=== PATIENT | male | born 1950 | race Two or more races ===

== ENCOUNTER 2021-03-28 08:39 | Outpatient (REF) | payer MEDICARE, SELFPAY ==
--- NOTE | ~2021-03-28 | XR_ITS ---
EXAMINATION: XR LUMBOSACRAL SPINE WITH OBLIQUES CLINICAL INFORMATION: Low back pain COMPARISON: None TECHNIQUE: AP, both oblique, and lateral views of the lumbar spine. Lateral view of the lumbosacral junction. FINDINGS: Bone alignment is normal. No fracture or dislocation is seen. There is degenerative spondylosis at L2-L3 and L3-L4. There is lower lumbar spine facet arthritis. No pars defect is seen. Disc spaces are normal. XR/XR lumbar spine 4V min IMPRESSION: Degenerative changes.
== END 2021-03-28 08:40 | disposition home or self-care (01) ==
LOC: HO.XRAY 08:39
PROVIDERS: PCP Internal Medicine; Visit Provider Internal Medicine
DX: M54.5 Low back pain (principal)
CPT/HCPCS: 72110

== ENCOUNTER 2021-05-24 08:40 | Outpatient (REF) | payer MEDICARE, SELFPAY ==
[2021-05-24 09:59] LABS: PSA,Total (Free>4and<10) 5.17 ng/mL (0.00-4.00)
[2021-05-27 11:16] LABS: Free Prostate Spec Ag 0.4 ng/mL; Percent Free Prostate Spec Ag 9 % (calc) (>25); Prostate Specific Ag Total 4.6 ng/mL (< OR = 4.0)
== END 2021-05-24 08:41 | disposition home or self-care (01) ==
LOC: HO.LAB 08:40
PROVIDERS: PCP Internal Medicine; Visit Provider Urology
DX: Z12.5 Encounter for screening for malignant neoplasm of prostate (principal); R97.20 Elevated prostate specific antigen [PSA]
CPT/HCPCS: 36415; 84153; 84154

== ENCOUNTER → 2021-08-01 13:08 | Outpatient (BNVA) | payer MEDICARE, SELFPAY | PROVIDERS: PCP Internal Medicine; Visit Provider Urology | DX: N40.1 Benign prostatic hyperplasia with lower urinary tract symptoms (principal); N13.8 Other obstructive and reflux uropathy; R31.0 Gross hematuria | CPT/HCPCS: Q3014 ==

== ENCOUNTER 2022-01-28 08:19 | Outpatient (REF) | payer MEDICARE, SELFPAY ==
[2022-01-29 11:47] LABS: Free Prostate Spec Ag 1.4 ng/mL; Percent Free Prostate Spec Ag 28 % (calc) (>25)
== END 2022-01-28 08:20 | disposition home or self-care (01) ==
LOC: HO.LAB 08:19
PROVIDERS: PCP Internal Medicine; Visit Provider Urology
DX: Z12.5 Encounter for screening for malignant neoplasm of prostate (principal); N40.1 Benign prostatic hyperplasia with lower urinary tract symptoms; N13.8 Other obstructive and reflux uropathy
CPT/HCPCS: 36415; 84153; 84154

== ENCOUNTER → 2022-02-06 10:17 | Outpatient (BNVA) | payer OTHER, SELFPAY | PROVIDERS: PCP Internal Medicine; Visit Provider Urology | DX: N40.1 Benign prostatic hyperplasia with lower urinary tract symptoms (principal); N13.8 Other obstructive and reflux uropathy; R97.20 Elevated prostate specific antigen [PSA] | CPT/HCPCS: Q3014 ==

== ENCOUNTER 2022-07-30 08:10 | Outpatient (REF) | payer OTHER, SELFPAY ==
[2022-07-30 09:48] LABS: PSA,Total (Free>4and<10) 3.21 ng/mL (0.00-4.00)
== END 2022-07-30 08:11 | disposition home or self-care (01) ==
LOC: HO.LAB 08:10
PROVIDERS: PCP Internal Medicine; Visit Provider Urology
DX: Z12.5 Encounter for screening for malignant neoplasm of prostate (principal); N40.1 Benign prostatic hyperplasia with lower urinary tract symptoms; N13.8 Other obstructive and reflux uropathy
CPT/HCPCS: 36415; 84153

== ENCOUNTER → 2022-08-05 14:49 | Outpatient (BNVA) | payer OTHER, SELFPAY | PROVIDERS: PCP Internal Medicine; Visit Provider Urology | DX: R97.20 Elevated prostate specific antigen [PSA] (principal); N40.1 Benign prostatic hyperplasia with lower urinary tract symptoms; N13.8 Other obstructive and reflux uropathy | CPT/HCPCS: 51798; 99212 ==

== ENCOUNTER → 2022-08-27 13:06 | Outpatient (BNVA) | payer OTHER, SELFPAY | PROVIDERS: PCP Internal Medicine; Referring Provider Internal Medicine; Visit Provider Nurse Practitioner | DX: Z01.818 Encounter for other preprocedural examination (principal); D12.6 Benign neoplasm of colon, unspecified | CPT/HCPCS: 99202 ==

== ENCOUNTER 2023-01-29 08:22 | Outpatient (REF) | payer OTHER, SELFPAY ==
[2023-01-29 08:32] LABS: MANUAL DIFF FLAG NO
[2023-01-29 08:43] LABS: Basophils Percent Auto 0.3 % (0-2); Eosinophils Absolute Auto 0.1 X10*3/uL (0.0-0.4); Eosinophils Percent Auto 1.5 % (0-4); Hematocrit 48.1 % (42.0-52.0); Hemoglobin 15.7 g/dl (14.0-18.0); Imm Gran Abs Auto 0.01 X10*3/uL (0.00-0.03); Imm Gran Pct Auto 0.2 % (0.0-0.4); Lymphocytes Absolute Auto 2.3 X10*3/uL (1.2-4.9); Lymphocytes Percent Auto 37.8 % (20-40); Mean Corpuscular HGB Conc 32.6 g/dl (31.0-36.0); Mean Corpuscular Hemoglobin 28.4 pg (27.0-33.0); Mean Corpuscular Volume 87.1 fL (80.0-98.0); Mean Platelet Volume 9.5 fL (9.4-12.4); Monocytes Absolute Auto 0.4 X10*3/uL (0.1-1.2); Monocytes Percent Auto 6.7 % (2-11); Neutrophils Absolute Auto 3.3 x10*3/uL (2.0-8.3); Neutrophils Percent Auto 53.5 % (45-73); Platelet Count 199 X10*3/uL (160-400); Red Blood Count 5.52 X10*6/uL (4.60-5.80); Red Cell Distribution Width 13.6 % (11.0-16.0); White Blood Count 6.1 X10*3/uL (4.8-10.8)
[2023-01-29 09:19] LABS: Alanine Aminotransferase 27 U/L (0-40); Albumin Level 4.7 g/dL (3.5-5.0); Alkaline Phosphatase 97 U/L (39-117); Anion Gap 14 (12-20); Aspartate Amino Transferase 24 U/L (5-37); Bilirubin Total 1.4 mg/dL (0.0-1.0); Blood Urea Nitrogen 14 mg/dL (9-16); Calcium 9.5 mg/dL (8.4-10.2); Carbon Dioxide 27 mmol/L (22-29); Chloride 105 mmol/L (96-108); Estimated Glomerular Filt Rate > 60; Glucose Random 104 mg/dL (60-115); Potassium 4.4 mmol/L (3.3-5.1); Sodium 142 mmol/L (135-145); Total Protein 7.6 g/dL (6.5-8.0)
== END 2023-01-29 08:23 | disposition home or self-care (01) ==
LOC: HO.LAB 08:22
PROVIDERS: Nurse Practitioner; PCP Internal Medicine; Visit Provider Urology
DX: Z01.818 Encounter for other preprocedural examination (principal); Z12.5 Encounter for screening for malignant neoplasm of prostate; N13.8 Other obstructive and reflux uropathy; R97.20 Elevated prostate specific antigen [PSA]; D12.6 Benign neoplasm of colon, unspecified; N40.1 Benign prostatic hyperplasia with lower urinary tract symptoms
CPT/HCPCS: 36415; 80053; 84153; 85025

== ENCOUNTER → 2023-02-06 13:39 | Outpatient (BNVA) | payer OTHER, SELFPAY | PROVIDERS: PCP Internal Medicine; Visit Provider Urology | DX: R97.20 Elevated prostate specific antigen [PSA] (principal); R31.0 Gross hematuria | CPT/HCPCS: 51798; 99212 ==

== ENCOUNTER 2023-04-09 08:18 | Day surgery (SDC) | payer OTHER, SELFPAY ==
[2023-04-03 16:27] VITALS: BMI 24.9
--- NOTE | 2023-04-08 08:33 | HO.ANESPROP2 ---
Documented by User: Viktoriya Jennings NP 04/08/23 08:34 HPI - Anesthesia Eval Consult details Narrative: 72yo M for Colonoscopy PMF Active Problems Active Problems: All Active Problems (Updated 08/27/22 @ 13:16 by MATEUSZ Montemayor) Pre-op examination (Acute) Allergic rhinitis (Acute) Tubular adenoma of colon (Acute) Chronic low back pain (Acute) Elevated PSA (Acute) Gross hematuria (Acute) BPH w urinary obs/LUTS (Acute) Past Medical History Medical History Allergies BPH (benign prostatic hyperplasia) Constipation Elevated PSA Hematuria Hyperlipidemia Insomnia Surgical History Surgical History H/O colonoscopy H/O hernia repair History of surgery Hx of tonsillectomy Social History Social History Advance Directives: No Advance Directives Information Provided: Yes Meds Allergies Allergy/AdvReac Type Severity Reaction Status Date / Time ciprofloxacin [From CIPRO] Allergy Severe ANGIOEDEMA Verified 04/09/23 09:40 latex [LATEX] Allergy Unknown ANGIOEDEMA, Verified 04/09/23 09:40 PERIORBITAL EDEMA, rash Home Medications Medication Instructions Recorded Confirmed Last Taken Type acetaminophen 650 mg 650 mg PO BEDTIME 02/06/22 02/06/23 Unknown History tablet,extended release amlodipine 10 mg tablet 10 mg PO DAILY 02/06/22 02/06/23 Unknown History atenolol 100 mg tablet 100 mg PO DAILY 02/06/22 02/06/23 Unknown History atorvastatin 40 mg tablet 40 mg PO BEDTIME 02/06/22 02/06/23 Unknown History cetirizine 10 mg tablet 10 mg PO DAILY 02/06/22 02/06/23 Unknown History sennosides 8.6 mg tablet (senna) 17.2 mg PO DAILY 02/06/22 02/06/23 Unknown History fluticasone propionate 50 1 - 2 spray intranasal DAILY PRN 08/01/22 02/06/23 Unknown History mcg/actuation nasal spray,suspension Exam Exam Date and Time: April 08, 2023 0833 Height,Weight and Vital Signs: Height 5 ft 6 in Weight 70.08 kg Pertinent Lab Results Pertinent Lab Results: Laboratory Tests 01/29/23 01/29/23 08:31 08:31 WBC 6.1 Hgb 15.7 Hct 48.1 Plt Count 199 Sodium 142 Potassium 4.4 Chloride 105 Carbon Dioxide 27 BUN 14 Creatinine 1.17 Assessment and Plan Assessment Anesthesia Assessment: Chart Reviewed Documented by User: Blanche Lucas MD 04/09/23 09:40 PMF Past Medical History Medical History Allergies BPH (benign prostatic hyperplasia) Constipation Elevated PSA Hematuria Hyperlipidemia Insomnia Surgical History Surgical History H/O colonoscopy H/O hernia repair History of surgery Hx of tonsillectomy History of Problems with Anesthesia: No Social History Social History Advance Directives: No Advance Directives Information Provided: Yes Meds Allergies Allergy/AdvReac Type Severity Reaction Status Date / Time ciprofloxacin [From CIPRO] Allergy Severe ANGIOEDEMA Verified 04/09/23 09:40 latex [LATEX] Allergy Unknown ANGIOEDEMA, Verified 04/09/23 09:40 PERIORBITAL EDEMA, rash Home Medications Medication Instructions Recorded Confirmed Last Taken Type acetaminophen 650 mg 650 mg PO BEDTIME 02/06/22 02/06/23 Unknown History tablet,extended release amlodipine 10 mg tablet 10 mg PO DAILY 02/06/22 02/06/23 Unknown History atenolol 100 mg tablet 100 mg PO DAILY 02/06/22 02/06/23 Unknown History atorvastatin 40 mg tablet 40 mg PO BEDTIME 02/06/22 02/06/23 Unknown History cetirizine 10 mg tablet 10 mg PO DAILY 02/06/22 02/06/23 Unknown History sennosides 8.6 mg tablet (senna) 17.2 mg PO DAILY 02/06/22 02/06/23 Unknown History fluticasone propionate 50 1 - 2 spray intranasal DAILY PRN 08/01/22 02/06/23 Unknown History mcg/actuation nasal spray,suspension Exam Airway Mallampati Class: II TM Dist: >3cm Neck ROM: Full Loose/Missing/Broken Teeth: No Heart: RRR Lungs: CTA Assessment and Plan Assessment Anesthesia Assessment: Anesthesia Plan Discussed Final Anesthetic Review History of Problems with Anesthesia: No NPO: Yes ASA Class: II Final Preanesthetic Review: Meds/Allgs Chart Reviewed, Consent Obtained/Reviewed and Anes Risks/Benef Reviewed Patient Risk: Low Procedure Risk: Low Anesthetic Plan Anesthetic Plan: MAC: Disposition: Standard PACU
--- NOTE | 2023-04-09 09:19 | MHC.SHP ---
Pre-Procedural Eval Section A Date of Service: 04/09/23 Section B Chief Complaint: Benign neoplasm of colon, unspecified Relevant Family History (Specify if Yes): No Relevant Social History: None Present Medications: see Short Stay Collaborative assessment Medical History: Significant History (Allergies BPH (benign prostatic hyperplasia) Constipation Elevated PSA Hematuria Hyperlipidemia Insomnia) History of Previous Operations: Relevant previous surgery/procedure and date(s) (H/O colonoscopy H/O hernia repair History of surgery Hx of tonsillectomy) Allergies: Allergies Allergy/AdvReac Type Severity Reaction Status Date / Time ciprofloxacin [From CIPRO] Allergy Severe ANGIOEDEMA Verified 02/06/23 14:00 latex [LATEX] Allergy Unknown ANGIOEDEMA, Verified 04/03/23 16:26 PERIORBITAL EDEMA, rash Review of Systems Sugical H&P ROS: Negative: Constitution, Cardiovascular, Respiratory, Neurological, Psychiatric, Hem-Onc, Allergic/Immunologic, Gastrointestinal, Genitourinary, Musculoskeletal, Integumentary, Endocrine and Eyes/Ears/Nose/Throat Exam Surgical H&P Exam: Normal: HEENT, Normal: Heart, Normal: Lungs, Normal: Extremities, Normal: Abdomen, Normal: Skin and Normal: Neurological Plan Diagnosis/Plan: Unchanged I have reviewed the history and physical and performed a pertinent physical examination on my patient. No changes have occurred unless specified. Time Spent With Patient Time: Total time managing care of this patient today ____ minutes.
[2023-04-09 09:35] VITALS: BP 137/55; PULSE 75; RESP 16; TEMP 36.7; O2SAT 98
[2023-04-09 09:43] VITALS: BMI 25.5
[2023-04-09] MEDS: Lactated Ringers 1,000 ML 100 ML IVCONT (09:54)
--- NOTE | 2023-04-09 10:10 | P.OP_ITS ---
Operative Note Operative Note Date of Service: 04/09/23 Narrative: Operative Information Procedure Description: Colonoscopy Indication: hx of colon polyps Anesthesia: MAC COLONOSCOPY Instrument: Olympus variable stiffness pediatric scope 190L Colonoscopy Monitoring: Vital signs and clinical assessment, continuous EKG monitoring, Pulse oximetry, Carbon Dioxide monitoring and blood pressure monitoring were done throughout the procedure. Colon withdrawal time was 9 minutes. Procedure: The patient was placed in the left lateral decubitis position and pre-procedure medications were administered. After a digital rectal examination of the ano-rectum, the video colonoscope was inserted into the rectum and advanced through the colon to the cecum/TI. The colonoscope was slowly withdrawn in a retrograde panoramic fashion and the colon mucosa was carefully examined including a retroflexed view of the rectum. Findings and interventions are described below. Procedure Difficulty: easy Findings: Diffuse melanosis coli Terminal Ileum-normal Cecum:normal Ascending Colon: few diverticula seen Transverse Colon -normal Descending Colon: x 1 sessile polyp 7-8 mm removed with cold snare Sigmoid Colon: mild scattered diverticulosis, x1 sessile polyp 6-8 mm removed with cold snare Rectum: Retroflexion with medium sized internal hemorrhoids, grade I Anorectum - normal Colon preparation: [place] Bowel Preparation Scale Right colon; 2 Transverse colon: 3 Left colon; 3 (0 = Unprepared colon segment with mucosa not seen due to solid stool that cannot be cleared. 1 = Portion of mucosa of the colon segment seen, but other areas of the colon segment not well seen due to staining, residual stool and/or opaque liquid. 2 = Minor amount of residual staining, small fragments of stool and/or opaque liquid, but mucosa of colon segment seen well. 3 = Entire mucosa of colon segment seen well with no residual staining, small fragments of stool or opaque liquid) Impression and Post Procedure Diagnosis: polyps internal hemorrhoids diverticular disease melanosis coli Plan: High fiber diet leaflet Avoid straining at stool, epsom salts and sitz bath, anusol supps or cream Repeat Colonoscopy in 5 years if health allows due to adenomatous appearing polyps or earlier if clinically indicated Above findings were reviewed with the patient and relevant handouts were provided if indicated.
[2023-04-09 10:50] VITALS: BP 101/49; PULSE 62; RESP 16; TEMP 36.2; O2SAT 98
[2023-04-09 11:05] VITALS: BP 118/63; PULSE 64; RESP 14; O2SAT 99
[2023-04-09 11:19] VITALS: BP 122/65; PULSE 66; RESP 18; TEMP 36.9; O2SAT 99
== END 2023-04-09 11:50 | disposition home or self-care (01) ==
PROVIDERS: PCP Internal Medicine; Visit Provider Internal Medicine Gastroenterology
PROC: 0DJD8ZZ Inspection of Lower Intestinal Tract, Via Natural or Artificial Opening Endoscopic (ICD-10-PCS; CPT 45378; principal; 2023-04-09 09:10)
DX: Z12.11 Encounter for screening for malignant neoplasm of colon (principal); Z86.010 Personal history of colon polyps; K63.5 Polyp of colon; K57.30 Diverticulosis of large intestine without perforation or abscess without bleeding; K64.0 First degree hemorrhoids; K63.89 Other specified diseases of intestine; K59.00 Constipation, unspecified; J30.9 Allergic rhinitis, unspecified; N40.0 Benign prostatic hyperplasia without lower urinary tract symptoms; R97.20 Elevated prostate specific antigen [PSA]; E78.5 Hyperlipidemia, unspecified; G47.00 Insomnia, unspecified; Z79.51 Long term (current) use of inhaled steroids; Z79.899 Other long term (current) drug therapy; Z88.1 Allergy status to other antibiotic agents; Z91.040 Latex allergy status; Z87.891 Personal history of nicotine dependence
CPT/HCPCS: 45385; 88305

== ENCOUNTER → 2023-05-06 08:31 | Outpatient (BNVA) | payer OTHER, SELFPAY | PROVIDERS: PCP Internal Medicine; Visit Provider Nurse Practitioner | DX: D12.6 Benign neoplasm of colon, unspecified (principal); K64.8 Other hemorrhoids; K57.30 Diverticulosis of large intestine without perforation or abscess without bleeding; K63.89 Other specified diseases of intestine; Z98.890 Other specified postprocedural states | CPT/HCPCS: 99212 ==

== ENCOUNTER 2023-08-25 09:01 | Outpatient (REF) | payer OTHER, SELFPAY ==
--- NOTE | ~2023-08-25 | XR_ITS ---
EXAMINATION: XR LUMBOSACRAL SPINE CLINICAL INFORMATION: Chronic low back pain without sciatica. Progressive over 2 years. COMPARISON: 01/26/2021 TECHNIQUE: Three views of the lumbosacral spine. FINDINGS: Straightening of the normal lumbar lordosis. Facet arthritis in the lower lumbar spine. Degenerative changes with sclerosis in the bilateral sacroiliac joints. Multilevel lumbar spondylosis with prominent anterior osteophytes most notable at L3-L4 and L4-L5. Mild loss of disc space height at L2-L3, L3-L4 and L4-L5. XR/XR lumbar spine 2-3V IMPRESSION: Mild multilevel degenerative changes.
== END 2023-08-25 09:02 | disposition home or self-care (01) ==
LOC: HO.HHCX 09:01
PROVIDERS: Visit Provider Internal Medicine
DX: M54.50 Low back pain, unspecified (principal)
CPT/HCPCS: 72100

== ENCOUNTER 2023-11-25 08:34 | Outpatient (REF) | payer OTHER, SELFPAY ==
[2023-11-25 10:23] LABS: Prostate Specific Antigen 2.28 ng/mL (<0.05-4.0)
== END 2023-11-25 08:35 | disposition home or self-care (01) ==
LOC: HO.LAB 08:34
PROVIDERS: PCP Internal Medicine; Visit Provider Urology
DX: R97.20 Elevated prostate specific antigen [PSA] (principal); Z12.5 Encounter for screening for malignant neoplasm of prostate
CPT/HCPCS: 36415; 84153

== ENCOUNTER 2023-12-01 08:55 | Outpatient (AMB) | payer OTHER, SELFPAY ==
--- NOTE | 2023-12-01 08:56 | A.OFFVIS_ITS ---
Intake Intake Visit Reasons: 6M/PSA(set) Intake Note: Patient is Present for Follow Up PSA Urology Medication: Finasteride Antibiotic Allergies: Cipro Blood Thinners: None PVR: Allergies ciprofloxacin [From CIPRO] Allergy (Severe, Verified 12/01/23 09:00) ANGIOEDEMA latex [LATEX] Allergy (Unknown, Verified 12/01/23 09:00) ANGIOEDEMA, PERIORBITAL EDEMA, rash Medication List - Last Reconciled 12/01/23 by Carlos A Garcia MD acetaminophen ER 650 mg PO BEDTIME amlodipine 10 mg PO DAILY atenolol 100 mg PO DAILY atorvastatin 40 mg PO BEDTIME cetirizine 10 mg PO DAILY finasteride 5 mg PO DAILY 90 days fluticasone propionate 50 mcg/actuation 1 - 2 sprays intranasal DAILY PRN sennosides (senna) 17.2 mg PO DAILY HPI HPI Comments History of Present Illness Details Vinny is a very pleasant male. He is a patient of Dr. Swain. He is seen for the following urologic issues - BPH - elevated PSA Kyrgyz translation provided PSA stable Continues on mono therapy with finasteride Thursday, Thursday, Thursday, Minimal nocturia 1-2 Twelve month follow-up Lower urinary tract symptoms Longstanding Prior therapy finasteride and tamsulosin Minimal symptoms on medications PSA - 03/28 4.5 14%, 05/29 5.2 9%, 01/28 5.0 28 %, 07/31 3.2, 01/28 2.5, 12/02 2.3 Adjusted for finasteride PSA is elevated Prior discussion has considered prostate biopsy Prior complete evaluation for gross hematuria negative PFSH Medical History Hypertension Insomnia Hyperlipidemia Allergies Hematuria BPH (benign prostatic hyperplasia) Elevated PSA Constipation Surgical History H/O hernia repair H/O colonoscopy Hx of tonsillectomy History of surgery Social History Patient Tobacco Use Status: Former Tobacco user Tobacco use type: Cigarette Review of Systems Const Denies chills and Denies fever(s) Card Reports no additional complaints and Denies syncope Resp Denies cough GI Denies abdominal pain and Denies heartburn Reports as per HPI and Denies change in libido Neuro Denies syncope Psych Denies change in libido Endo Denies change in libido Physical Exam Const General: cooperative, healthy appearing, comfortable and no acute distress Orientation/consciousness: patient oriented x3 HEENT Face and sinus: Yes normal facial exam Mouth: moist mucous membranes Neck Neck: Yes normal visual inspection, Yes full ROM and Yes trachea midline Chest Chest palpation & inspection: normal inspection of the chest Resp Effort & Inspection: normal respiratory effort, able to speak in complete sentences and no respiratory distress GI Inspection: Yes normal to inspection Back/Spine/Pelvis Cervical Spine: normal cervical lordosis Thoracic/Lumbar Spine: thoracic and lumbar spine normal to inspection Skin General skin exam: no rashes or lesions noted Neuro General: patient oriented x3, gait normal, tone normal and moves all extremities Extrem General: Yes normal to inspection and Yes capillary refill normal Assessment & Plan Assessment & Plan (1) BPH w urinary obs/LUTS: Code(s): N40.1 - Benign prostatic hyperplasia with lower urinary tract symptoms; N13.8 - Other obstructive and reflux uropathy (2) Gross hematuria: Code(s): R31.0 - Gross hematuria (3) Elevated PSA: Code(s): R97.20 - Elevated prostate specific antigen [PSA] Plan Twelve month follow-up Orders: Orders AMB Post Void Residual by ultrasound 12/01/23 N40.1 - Benign prostatic hyperplasia with lower urinary tract symptoms, N13.8 - Other obstructive and reflux uropathy Patient Instructions: Imaging studies, laboratory and physical exam results were discussed and reviewed in detail. No major barriers to patient understanding were identified. An opportunity to ask questions regarding the treatment plan was provided. All questions were answered. The patient expressed understanding and agreement with the above treatment plan. The patient is aware they should contact our office by phone for worsening of their current condition or the appearance of new urologic symptoms. Compliance is encouraged with any medications and followup testing that is ordered. It is a privilege to participate in the urologic care of your patient. If you have any questions or concerns regarding treatment for the above conditions, or other urologic issues, please do not hesitate to contact me. The office telephone contact is [phone]. This note is constructed using voice recognition software. While every effort has been made to ensure accuracy oncology radiation physician errors may have been included. Yours sincerely, Dr Carlos A Garcia MD, [facility] - Urology Providers of Expert, Compassionate Care for the Genitourinary System Coding Level of Care Code Est Pt Level 4 (11513) Diagnoses BPH w urinary obs/LUTS N40.1; N13.8 Gross hematuria R31.0 Elevated PSA R97.20
== END 2023-12-01 09:15 | disposition home or self-care (01) ==
PROVIDERS: PCP Internal Medicine; Visit Provider Urology
DX: N40.1 Benign prostatic hyperplasia with lower urinary tract symptoms (principal); N13.8 Other obstructive and reflux uropathy; R31.0 Gross hematuria; R97.20 Elevated prostate specific antigen [PSA]
CPT/HCPCS: 99214

== ENCOUNTER → 2023-12-01 08:55 | Outpatient (BNVA) | payer OTHER, SELFPAY | PROVIDERS: Visit Provider Urology | DX: N40.1 Benign prostatic hyperplasia with lower urinary tract symptoms (principal); N13.8 Other obstructive and reflux uropathy; R31.0 Gross hematuria; R97.20 Elevated prostate specific antigen [PSA] | CPT/HCPCS: 99212 ==

== ENCOUNTER 2024-04-12 08:10 | Outpatient (REF) | payer OTHER, SELFPAY ==
[2024-04-12 12:53] LABS: Alanine Aminotransferase 18 U/L (0-40); Albumin Level 4.5 g/dL (3.5-5.0); Alkaline Phosphatase 87 U/L (39-117); Anion Gap 13 (12-20); Aspartate Amino Transferase 22 U/L (5-37); Bilirubin Total 1.1 mg/dL (0.0-1.0); Blood Urea Nitrogen 15 mg/dL (9-16); Calcium 9.6 mg/dL (8.4-10.2); Carbon Dioxide 26 mmol/L (22-29); Chloride 106 mmol/L (96-108); Cholesterol 149 mg/dL (<200); Estimated Glomerular Filt Rate > 60; Glucose Random 100 mg/dL (60-115); HDL Cholesterol 45 mg/dL (>40); LDL Cholesterol Calculated 88 mg/dL (<100); Potassium 3.8 mmol/L (3.3-5.1); Sodium 141 mmol/L (135-145); Total Protein 7.5 g/dL (6.5-8.0); Triglycerides 83 mg/dL (<150)
[2024-04-12 12:59] LABS: TSH reflex Free T4 1.86 uIU/mL (0.32-4.0); Vitamin D 25-OH Total 19.7 ng/mL (>30)
[2024-04-12 14:22] LABS: Reflex LDLD? No
== END 2024-04-12 08:11 | disposition home or self-care (01) ==
LOC: HO.HHCL 08:10
PROVIDERS: Visit Provider Internal Medicine
DX: I10 Essential (primary) hypertension (principal)
CPT/HCPCS: 36415; 80053; 80061; 82306; 84443

== ENCOUNTER 2024-08-04 09:48 | Outpatient (AMB) | payer OTHER, SELFPAY ==
[2024-08-04 09:58] VITALS: BP 134/63; PULSE 57; O2SAT 98
--- NOTE | 2024-08-04 09:58 | MHC.OFFVIS ---
Vital Signs 08/04/24 09:58 Weight 149 lb BP 134/63 Blood Pressure Location Lt brachial Position Sitting Pulse 57 Pulse Source Pulse Oximeter Pulse Oximetry (%) 98 Oxygen Delivery Method Room Air Intake Visit Reasons: Chronic Bilateral Low Back Pain Allergies ciprofloxacin [From CIPRO] Allergy (Severe, Verified 08/04/24 10:00) ANGIOEDEMA latex [LATEX] Allergy (Unknown, Verified 08/04/24 10:00) ANGIOEDEMA, PERIORBITAL EDEMA, rash Medication List - Last Reconciled 08/04/24 by Sally Covarrubias, ADULT BASIC EDUCATION MANAGER acetaminophen ER 650 mg PO BEDTIME amlodipine 10 mg PO DAILY atenolol 100 mg PO DAILY atorvastatin 40 mg PO BEDTIME cetirizine 10 mg PO DAILY finasteride 5 mg PO DAILY 90 days fluticasone propionate 50 mcg/actuation 1 - 2 sprays intranasal DAILY PRN sennosides (senna) 17.2 mg PO DAILY HPI Comments Details: Vinny is a very pleasant 73-year-old male who presented to the office today, accompanied by his niece Fanny, for evaluation management of his chronic lower back pain They were offered certified medical gathering machine feeder however they refused. They requested that Fanny assist with interpretation. Endorses 3 years of bilateral lower back pain without radiation down either lower extremity. Denies inciting injury, trauma, fall Pain is worse with movement and activity He is currently taking Tylenol for the pain with minimal improvement. He also has topical creams that he has tried without improvement No improvement with heat or ice topically Pain today is rated as an 8/10, constant throughout the day He has not tried chiropractor, acupuncture, massage or injections So far has been unable to trial physical therapy due to difficulties getting to the PT office. He rarely leaves his home and has significant pain with any movements He denies red flag symptoms including new loss of bowel, bladder or saddle anesthesia In terms of muscle damage condition is described as pulsing, throbbing, pounding, pinching, dull, sore, aching Pain is negatively impacting patient's enjoyment of life, general activity, ability to care for himself and ability to perform activities of daily living Denies current use of anticoagulants Denies implantable devices, pacemaker or defibrillator Denies current use of nicotine, tobacco, alcohol or illicit substances Past medical history significant for chronic back pain, adenoma of the colon, hypertension and high cholesterol [facility] Medical History Hypertension Insomnia Hyperlipidemia Allergies Hematuria BPH (benign prostatic hyperplasia) Elevated PSA Constipation Surgical History H/O hernia repair H/O colonoscopy Hx of tonsillectomy History of surgery Social History Patient Tobacco Use Status: Former Tobacco user Tobacco use type: Cigarette Review of Systems Const All systems reviewed & are unremarkable except as noted in HPI and below Physical Exam Vital Signs: Last Vital Signs Pulse 57 08/04/24 09:58 BP 134/63 08/04/24 09:58 Pulse Ox 98 08/04/24 09:58 Oxygen Delivery Method Room Air 08/04/24 09:58 General: awake, alert, oriented. Answers questions appropriately. Fully engaged in examination. Skin: warm, dry, intact HEENT: Normocephalic. Hearing intact. Cardiac: External chest normal in appearance. Respiratory: No cough, audible wheezing or stridor. Abdomen: without gross distension. MS: No obvious swelling or deformities. Able to stand on bilateral tiptoes and bilateral heels.? Able to transition from sit to stand unassisted. Ambulates with bilaterally normal heel strike and toe off Bilateral lower extremity strength 5/5 Tenderness to palpation midline lumbar vertebrae and lumbar paraspinal muscles Significantly decreased range of motion, pain with flexion and extension though worse with extension SLR negative bilaterally Negative footdrop, negative clonus Nontender over bilateral PSIS Facet loading positive bilaterally Neurological: Oriented to person, place, time and situation. Thought process intact. No gait abnormalities appreciated. Psychiatric: Appropriate mood and affect. Good judgment and insight. Results Reviewed Results Reviewed: 08/25/2023 XR/XR lumbar spine 2-3V FINDINGS: Straightening of the normal lumbar lordosis. Facet arthritis in the lower lumbar spine. Degenerative changes with sclerosis in the bilateral sacroiliac joints. Multilevel lumbar spondylosis with prominent anterior osteophytes most notable at L3-L4 and L4-L5. Mild loss of disc space height at L2-L3, L3-L4 and L4-L5. IMPRESSION: Mild multilevel degenerative changes. Assessment & Plan Assessment & Plan (1) Lumbar spondylosis: Code(s): M47.816 - Spondylosis without myelopathy or radiculopathy, lumbar region Category: Medical (2) Chronic low back pain: Code(s): M54.50 - Low back pain, unspecified; G89.29 - Other chronic pain Category: Medical Plan Vinny is a very pleasant 73-year-old male who presented to the office today for evaluation management of his chronic lower back pain Patient is suffering with axial back pain, lumbar spondylosis Patient is unable to attend physical therapy outside of the home due to limited mobility and difficulties getting to and from appointments secondary to his pain. Order placed for home PT through [facility] Naproxen 250 mg p.o. twice daily as needed. Patient advised on cautions for use. Take with food. Do not take with any other nonsteroidal anti-inflammatory medications. Lidocaine patches 5%, apply most painful area. On for 12 hours, off for 12 hours. Will schedule for fluoroscopy guided bilateral L3-L4 DR L5 medial branch blocks with local anesthetic All questions and concerns were answered, patient agrees to the plan. Follow up after injections, sooner if needed Orders: Referrals [facility] Referral G89.29 - Other chronic pain, M47.816 - Spondylosis without myelopathy or radiculopathy, lumbar region, M54.50 - Low back pain, unspecified Medications: New naproxen 250 mg PO BID PRN 60 tabs 0RF pain lidocaine 5% leave on most painful area for up to 12 hrs 1 patch topical DAILY PRN 30 ea 3RF pain Coding Level of Care Code New Pt Level 4 (57099) Complex EM visit Add On G2211 Diagnoses Lumbar spondylosis M47.816 Chronic low back pain M54.50; G89.29
== END 2024-08-04 10:15 | disposition home or self-care (01) ==
PROVIDERS: PCP Internal Medicine; Referring Provider Internal Medicine; Visit Provider Registered Nurse Emergency
DX: M47.816 Spondylosis without myelopathy or radiculopathy, lumbar region (principal); M54.50 Low back pain, unspecified; G89.29 Other chronic pain
CPT/HCPCS: 99204; G2211

== ENCOUNTER → 2024-08-04 09:48 | Outpatient (BNVA) | payer OTHER, SELFPAY | PROVIDERS: PCP Internal Medicine; Referring Provider Internal Medicine; Visit Provider Registered Nurse Emergency | DX: M47.816 Spondylosis without myelopathy or radiculopathy, lumbar region (principal); M54.50 Low back pain, unspecified; G89.29 Other chronic pain | CPT/HCPCS: 99202 ==

== ENCOUNTER 2024-08-30 06:08 | Outpatient (REF) | payer OTHER, SELFPAY | END 2024-08-30 06:09 | disposition home or self-care (01) | LOC: CF 06:08 | PROVIDERS: Visit Provider Anesthesiology | DX: M47.816 Spondylosis without myelopathy or radiculopathy, lumbar region (principal) | CPT/HCPCS: 64493; 64494; J2003; J2795; Q9967 ==

== ENCOUNTER 2024-08-30 10:45 | Outpatient (AMB) | payer OTHER, SELFPAY ==
--- NOTE | 2024-08-30 10:47 | A.OFFVIS_ITS ---
Vital Signs 08/30/24 11:53 08/30/24 11:53 Height 5 ft 6 in 5 ft 6 in Weight 149 lb 149 lb BMI 24.0 24.0 BP 140/64 H 125/52 L Blood Pressure Location Lt brachial Lt brachial Position Sitting Sitting Respiration 14 14 Pulse 63 62 Pulse Source Pulse Oximeter Pulse Oximeter Pulse Oximetry (%) 99 98 Oxygen Delivery Method Room Air Room Air Comment pre-op post-op Intake Visit Reasons: BILATERAL DIAGNOSTIC L3, L4, DRL5 MBB Allergies ciprofloxacin [From CIPRO] Allergy (Severe, Verified 08/30/24 10:56) ANGIOEDEMA latex [LATEX] Allergy (Unknown, Verified 08/30/24 10:56) ANGIOEDEMA, PERIORBITAL EDEMA, rash PFSH Medical History Hypertension Insomnia Hyperlipidemia Allergies Hematuria BPH (benign prostatic hyperplasia) Elevated PSA Constipation Surgical History H/O hernia repair H/O colonoscopy Hx of tonsillectomy History of surgery Social History Patient Tobacco Use Status: Former Tobacco user Tobacco use type: Cigarette Physical Exam Vital Signs: Last Vital Signs Pulse 62 08/30/24 11:53 Resp 14 08/30/24 11:53 BP 125/52 L 08/30/24 11:53 Pulse Ox 98 08/30/24 11:53 Oxygen Delivery Method Room Air 08/30/24 11:53 BMI result Body Mass Index 24.0 Assessment & Plan Assessment & Plan (1) Lumbar spondylosis: Code(s): M47.816 - Spondylosis without myelopathy or radiculopathy, lumbar region Category: Medical Plan Diagnostic medial branch block L3,L4 dorsal ramus L5 bilateral.? ? ?Informed consent was explained to the patient. All questions were explained and? answered.? The patient was taken inside the operating room where she was positioned prone on the operating table. Time-out was performed delineating correct site, side, the nature of the procedure, patient's allergy, . All operating room staff was participating in OR time-out procedure. ? ? The lower back was prepped with ChloraPrep and draped with sterile towels.? C- arm was brought over the operating field and sq picture of L4-, L5 vertebra and S1 AREA were delineated on the screen.? Point of interest were delineated as confluence of superior articular process of L4 and L5 vertebra bilaterally with corresponding transverse processes as well as confluence of the sacral alae bilaterally with superior articular process of S1.? The projection of the point of interest to the skin were injected with the small amount of local anesthetic lidocaine 2% mixed with ropivacaine 0.5% 1-1 approcimately 1 cc.? After that 22 gauge 3.5 inch spinal needle was driven sequentially to the points of interest in tunnel vision fashion. After needles gently contacted the bone at the point of interests the needle was injected with small amount of the contrast.? The injection of the contrast did not demonstrate any intravascular or intrathecal spread of the contrast.? After that injection of the? ropivacaine 0.5%-1cc was performed at each needle location.??after that the needles were removed and Bandaids were applied. ? Upon completion of the injections? needle was? removed and sterile Band-Aids were applied.? The patient tolerated procedure very well. Orders: Orders [place] guidance in treatment room Today M47.816 - Spondylosis without myelopathy or radiculopathy, lumbar region Coding Level of Care Code Procedure Only Diagnoses Lumbar spondylosis M47.816
[2024-08-30 11:53] VITALS: BP 125/52; BP 140/64; PULSE 62; PULSE 63; RESP 14; O2SAT 98; O2SAT 99; BMI 24.0
== END 2024-08-30 11:50 | disposition home or self-care (01) ==
LOC: HO.PMCPRC 10:46
PROVIDERS: PCP Internal Medicine; Visit Provider Anesthesiology
DX: M47.816 Spondylosis without myelopathy or radiculopathy, lumbar region (principal)
CPT/HCPCS: 64493; 64494

== ENCOUNTER 2024-09-02 11:07 | Outpatient (AMB) | payer OTHER, SELFPAY ==
[2024-09-02 11:11] VITALS: BP 135/64; PULSE 61; O2SAT 98; BMI 24.9
--- NOTE | 2024-09-02 11:11 | MHC.OFFVIS ---
Vital Signs 09/02/24 11:11 Height 5 ft 6 in Weight 154 lb BMI 24.9 BP 135/64 Blood Pressure Location Rt brachial Pulse 61 Pulse Source Pulse Oximeter Pulse Oximetry (%) 98 Oxygen Delivery Method Room Air Intake Visit Reasons: BILATERAL DIAGNOSTIC L3, L4, DRL5 MBB Allergies ciprofloxacin [From CIPRO] Allergy (Severe, Verified 09/02/24 11:11) ANGIOEDEMA latex [LATEX] Allergy (Unknown, Verified 09/02/24 11:11) ANGIOEDEMA, PERIORBITAL EDEMA, rash Medication List - Last Reconciled 09/02/24 by Raina Khan acetaminophen ER 650 mg PO BEDTIME amlodipine 10 mg PO DAILY atenolol 100 mg PO DAILY atorvastatin 40 mg PO BEDTIME cetirizine 10 mg PO DAILY finasteride 5 mg PO DAILY 90 days fluticasone propionate 50 mcg/actuation 1 - 2 sprays intranasal DAILY PRN lidocaine 5% 1 patch topical DAILY PRN naproxen 250 mg PO BID PRN sennosides (senna) 17.2 mg PO DAILY HPI Comments Details: Patient presents to the office today, accompanied by his niece, for follow-up 3 days status post bilateral diagnostic L3-L4 DR L5 medial branch blocks with local anesthetic They were offered survive director [employer] however they declined. Patient reports 100% pain relief with improvement in functional mobility. Pain today is rated as a 0/10 Denies any untoward effects Intake note: Vinny is a very pleasant 73-year-old male who presented to the office today, accompanied by his niece Fanny, for evaluation management of his chronic lower back pain They were offered certified medical sample color maker however they refused. They requested that Fanny assist with interpretation. Endorses 3 years of bilateral lower back pain without radiation down either lower extremity. Denies inciting injury, trauma, fall Pain is worse with movement and activity He is currently taking Tylenol for the pain with minimal improvement. He also has topical creams that he has tried without improvement No improvement with heat or ice topically Pain today is rated as an 8/10, constant throughout the day He has not tried chiropractor, acupuncture, massage or injections So far has been unable to trial physical therapy due to difficulties getting to the PT office. He rarely leaves his home and has significant pain with any movements He denies red flag symptoms including new loss of bowel, bladder or saddle anesthesia In terms of muscle damage condition is described as pulsing, throbbing, pounding, pinching, dull, sore, aching Pain is negatively impacting patient's enjoyment of life, general activity, ability to care for himself and ability to perform activities of daily living Denies current use of anticoagulants Denies implantable devices, pacemaker or defibrillator Denies current use of nicotine, tobacco, alcohol or illicit substances Past medical history significant for chronic back pain, adenoma of the colon, hypertension and high cholesterol PFSH Medical History Hypertension Insomnia Hyperlipidemia Allergies Hematuria BPH (benign prostatic hyperplasia) Elevated PSA Constipation Surgical History H/O hernia repair H/O colonoscopy Hx of tonsillectomy History of surgery Social History Patient Tobacco Use Status: Former Tobacco user Tobacco use type: Cigarette Review of Systems Const All systems reviewed & are unremarkable except as noted in HPI and below Physical Exam Vital Signs: Last Vital Signs Pulse 61 09/02/24 11:11 BP 135/64 09/02/24 11:11 Pulse Ox 98 09/02/24 11:11 Oxygen Delivery Method Room Air 09/02/24 11:11 BMI result Body Mass Index 24.9 General: awake, alert, oriented. Answers questions appropriately. Fully engaged in examination. Skin: warm, dry, intact HEENT: Normocephalic. Hearing intact. Cardiac: External chest normal in appearance. Respiratory: No cough, audible wheezing or stridor. Abdomen: without gross distension. MS: No obvious swelling or deformities. Able to transition from sit to stand unassisted. Neurological: Oriented to person, place, time and situation. Thought process intact. No gait abnormalities appreciated. Psychiatric: Appropriate mood and affect. Good judgment and insight. Results Reviewed Results Reviewed: 08/25/2023 XR/XR lumbar spine 2-3V FINDINGS: Straightening of the normal lumbar lordosis. Facet arthritis in the lower lumbar spine. Degenerative changes with sclerosis in the bilateral sacroiliac joints. Multilevel lumbar spondylosis with prominent anterior osteophytes most notable at L3-L4 and L4-L5. Mild loss of disc space height at L2-L3, L3-L4 and L4-L5. IMPRESSION: Mild multilevel degenerative changes. Assessment & Plan Assessment & Plan (1) Lumbar spondylosis: Code(s): M47.816 - Spondylosis without myelopathy or radiculopathy, lumbar region Category: Medical (2) Chronic low back pain: Code(s): M54.50 - Low back pain, unspecified; G89.29 - Other chronic pain Category: Medical Plan Vinny presented back to the office today for follow-up, 3 days status post bilateral diagnostic L3-L4 DR L5 medial branch blocks with local anesthetic He reports 100% pain relief with improvement in functional mobility. Continue with Naproxen 250 mg p.o. twice daily as needed. Patient advised on cautions for use. Take with food. Do not take with any other nonsteroidal anti-inflammatory medications. Continue with Lidocaine patches 5%, apply most painful area. On for 12 hours, off for 12 hours. Discussed options for treatment including, epidural steroid injections, peripheral nerve stimulation with Sprint, RFA and more permanent neuromodulation. Informational pamphlets provided. Patient has not ready to proceed with a knee therapeutic in dimensions at this time. He will call the office when his pain returns. He will consider bilateral L3-L4 DR L5 RFA with sedation versus therapeutic MBB's once pain returns. He is not interested in sprint PNS. All questions and concerns were answered, patient agrees to the plan. Follow up when pain returns, sooner if needed Coding Level of Care Code Est Pt Level 3 (52693) Complex EM visit Add On G2211 Diagnoses Lumbar spondylosis M47.816 Chronic low back pain M54.50; G89.29
== END 2024-09-02 11:34 | disposition home or self-care (01) ==
PROVIDERS: PCP Internal Medicine; Visit Provider Registered Nurse Emergency
DX: M47.816 Spondylosis without myelopathy or radiculopathy, lumbar region (principal); M54.50 Low back pain, unspecified; G89.29 Other chronic pain
CPT/HCPCS: 99213; G2211

== ENCOUNTER → 2024-09-02 11:07 | Outpatient (BNVA) | payer OTHER, SELFPAY | PROVIDERS: PCP Internal Medicine; Visit Provider Registered Nurse Emergency | DX: M47.816 Spondylosis without myelopathy or radiculopathy, lumbar region (principal); M54.50 Low back pain, unspecified; G89.29 Other chronic pain | CPT/HCPCS: 99212 ==

== ENCOUNTER 2024-09-21 09:35 | Outpatient (REF) | payer OTHER, SELFPAY ==
--- NOTE | ~2024-09-21 | XR_ITS ---
EXAMINATION: XR SHOULDER, LEFT shoulder right CLINICAL INFORMATION: Pain. Pain COMPARISON: None available. TECHNIQUE: AP external rotation, Grashey, scapular Y, and axillary views of the left and right shoulder. FINDINGS: Left shoulder: No fracture, dislocation or destructive process. There is mild narrowing of the glenohumeral joint space. No erosive change. Right shoulder: There is moderate narrowing of the glenohumeral joint space. No fracture, dislocation or destructive lesion or erosive change. XR/XR shoulder LT min 2V IMPRESSION: Mild bilateral degenerative change. No acute findings. Electronically signed by: Lonny Castañeda MD 09/21/2024 12:03 PM NEIL CARMICHAEL
--- NOTE | ~2024-09-21 | XR_ITS ---
EXAMINATION: XR SHOULDER, LEFT shoulder right CLINICAL INFORMATION: Pain. Pain COMPARISON: None available. TECHNIQUE: AP external rotation, Grashey, scapular Y, and axillary views of the left and right shoulder. FINDINGS: Left shoulder: No fracture, dislocation or destructive process. There is mild narrowing of the glenohumeral joint space. No erosive change. Right shoulder: There is moderate narrowing of the glenohumeral joint space. No fracture, dislocation or destructive lesion or erosive change. XR/XR shoulder RT min 2V IMPRESSION: Mild bilateral degenerative change. No acute findings. Electronically signed by: Lonny Castañeda MD 09/21/2024 12:03 PM NEIL CARMICHAEL
== END 2024-09-21 09:36 | disposition home or self-care (01) ==
LOC: HO.HHCX 09:35
PROVIDERS: Visit Provider Internal Medicine
DX: M19.011 Primary osteoarthritis, right shoulder (principal); M19.012 Primary osteoarthritis, left shoulder
CPT/HCPCS: 73030

== ENCOUNTER 2024-11-30 08:20 | Outpatient (AMB) | payer OTHER, SELFPAY ==
--- NOTE | 2024-11-30 08:23 | A.OFFVIS_ITS ---
Intake Visit Reasons: 1Y PSA/PVR(set) Intake Note: Patient is Present for 1y Follow Up PSA/PVR Urology Medication: Finasteride Antibiotic Allergies: Cipro Blood Thinners: None TODAY'S PVR:14ML'S Cloth Weigher Required: No Allergies ciprofloxacin [From CIPRO] Allergy (Severe, Verified 11/30/24 08:25) ANGIOEDEMA latex [LATEX] Allergy (Unknown, Verified 11/30/24 08:25) ANGIOEDEMA, PERIORBITAL EDEMA, rash HPI Comments Details: Vinny is a very pleasant male. He is a patient of Dr. Swain. He is seen for the following urologic issues - BPH - elevated PSA [place] translation provided PSA stable Continues on mono therapy with finasteride Thursday, Thursday, Thursday, Minimal nocturia 1-2 Twelve month follow-up Lower urinary tract symptoms Longstanding Prior therapy finasteride and tamsulosin Minimal symptoms on medications PSA - 03/28 4.5 14%, 05/29 5.2 9%, 01/28 5.0 28%, 07/31 3.2, 01/28 2.5, 12/02 2.3, 12/02 2.5 Adjusted for finasteride PSA is elevated Prior discussion has considered prostate biopsy Prior complete evaluation for gross hematuria negative PFSH Medical History Hypertension Insomnia Hyperlipidemia Allergies Hematuria BPH (benign prostatic hyperplasia) Elevated PSA Constipation Surgical History H/O hernia repair H/O colonoscopy Hx of tonsillectomy History of surgery Social History Patient Tobacco Use Status: Former Tobacco user Tobacco use type: Cigarette Review of Systems Const Denies chills and Denies fever(s) Card Reports no additional complaints and Denies syncope Resp Denies cough GI Denies abdominal pain and Denies heartburn Reports as per HPI and Denies change in libido Neuro Denies syncope Psych Denies change in libido Endo Denies change in libido Physical Exam Const General: cooperative, healthy appearing, comfortable and no acute distress Orientation/consciousness: patient oriented x3 HEENT Face and sinus: Yes normal facial exam Mouth: moist mucous membranes Neck Neck: Yes normal visual inspection, Yes full ROM and Yes trachea midline Chest Chest palpation & inspection: normal inspection of the chest Resp Effort & Inspection: normal respiratory effort, able to speak in complete sentences and no respiratory distress GI Inspection: Yes normal to inspection Back/Spine/Pelvis Cervical Spine: normal cervical lordosis Thoracic/Lumbar Spine: thoracic and lumbar spine normal to inspection Skin General skin exam: no rashes or lesions noted Neuro General: patient oriented x3, gait normal, tone normal and moves all extremities Extrem General: Yes normal to inspection and Yes capillary refill normal Office Procedures Post Void Residual Post Residual Void Post Void Residual (PVR): 14 [id number] Void Residual by ultrasound Results AMB Urinalysis, Automated UA Leukoctes 15 Rafael/uL Last Edit by SILVINA Pickett on 11/30/24 08:38 UA Nitrite Negative Last Edit by SILVINA Pickett on 11/30/24 08:38 UA Urobilinogen 0.2 mg/dL Last Edit by SILVINA Pickett on 11/30/24 08:3 8 UA Protein 30 mg/dL Last Edit by SILVINA Pickett on 11/30/24 08:38 UA pH 5.5 Last Edit by SILVINA Pickett on 11/30/24 08:38 UA Blood 10 Bo/uL Last Edit by SILVINA Pickett on 11/30/24 08:38 UA Specific [place] 1.030 Last Edit by SILVINA Pickett on 11/30/24 08: 38 UA Ketone Positive Last Edit by SILVINA Pickett on 11/30/24 08:38 UA Bilirubin 1 mg/dL Last Edit by SILVINA Pickett on 11/30/24 08:38 UA Glucose 0 mg/dL Last Edit by SILVINA Pickett on 11/30/24 08:38 Results Reviewed Results Reviewed: Laboratory Last Values Urine pH (Auto) 5.5 11/30/24 08:37 Specific [place] (Auto) 1.030 11/30/24 08:37 Urine Protein (Auto) 30 mg/dL 11/30/24 08:37 Glucose (UA)(Auto) 0 mg/dL 11/30/24 08:37 Urine Ketones (Auto) Positive 11/30/24 08:37 Urine Blood (Auto) 10 Bo/uL 11/30/24 08:37 Urine Nitrite (Auto) Negative 11/30/24 08:37 Urine Bilirubin (Auto) 1 mg/dL 11/30/24 08:37 Urine Urobilinogen (Auto) 0.2 mg/dL 11/30/24 08:37 Leukocyte Esterase (Auto) 15 Rafael/uL 11/30/24 08:37 Assessment & Plan Assessment & Plan (1) Elevated PSA: Code(s): R97.20 - Elevated prostate specific antigen [PSA] Category: Medical (2) BPH w urinary obs/LUTS: Code(s): N40.1 - Benign prostatic hyperplasia with lower urinary tract symptoms; N13.8 - Other obstructive and reflux uropathy Category: Medical Plan Twelve month follow-up PVR and PSA Orders: Orders Prostate Specific Antigen 364 Days N13.8 - Other obstructive and reflux uropathy, N40.1 - Benign prostatic hyperplasia with lower urinary tract symptoms AMB Urinalysis Automated Today Z13.9 - Encounter for screening, unspecified Patient Instructions: Imaging studies, laboratory and physical exam results were discussed and reviewed in detail. No major barriers to patient understanding were identified. An opportunity to ask questions regarding the treatment plan was provided. All questions were answered. The patient expressed understanding and agreement with the above treatment plan. The patient is aware they should contact our office by phone for worsening of their current condition or the appearance of new urologic symptoms. Compliance is encouraged with any medications and followup testing that is ordered. It is a privilege to participate in the urologic care of your patient. If you have any questions or concerns regarding treatment for the above conditions, or other urologic issues, please do not hesitate to contact me. The office telephone contact is [phone]. This note is constructed using voice recognition software. While every effort has been made to ensure accuracy customer service leader errors may have been included. Yours sincerely, Dr Carlos A Garcia MD, [facility] - Urology Providers of Expert, Compassionate Care for the Genitourinary System Coding Level of Care Code Est Pt Level 4 (31533) Diagnoses Elevated PSA R97.20 BPH w urinary obs/LUTS N40.1; N13.8 CPT Codes Post Residual Void - PVR CPT Code: 85374-Gscp Void Residual by ultrasound ([id number])
--- OUTSIDE RECORDS SUMMARY | 2024-11-30 08:25 | XMS_ITS | Clinical Summary ---
Author Organization [employer] Address [address] [facility] [address] [place] [address] Care Team Providers Care Comptometer Operator Name Role Phone Cristina Swain MD Primary Care Provider + Allergies Active Allergy Reactions Criticality Noted Date Comments Ciprofloxacin Angioedema 04/25/2013 Medications Acetaminophen Extra Strength 500 MG tabletIndicatio ns:Arthritis TAKE 1 TABLET BY MOUTH EVERY 6 HOURS NEEDED FOR PAIN 90 tablet 3 023 Active finasteride (Proscar) 5 MG tablet TAKE 1 TABLET ORALLY DAILY FOR 90 DAYS 023 Active fluticasone (Flonase) 50 MCG/ACT nasal spray SPRAY 1 - 2 SPRAY BY INTRANASAL ROUTE EVERY DAY IN EACH NOSTRIL NEEDED 023 Active cyclobenzaprine (Flexeril) 10 MG tablet TAKE 1 TABLET BY MOUTH EVERYDAY AT BEDTIME 30 tablet 023 Active Menthol, Topical Analgesic, (Icy Hot) 5 % patchIndication s:Chronic bilateral low back pain without sciatica Use 1 patch daily on affected area 14 patch 024 Active EPINEPHrine (Epipen) 0.3 MG/0.3ML injection syringeIndicati ons:Anaphylaxis , sequela Inject 0.3 mL (0.3 mg) as directed 1 (one) time for 1 dose. 2 each 3 024 Active amLODIPine (Norvasc) 10 MG tablet TAKE 1 TABLET BY MOUTH EVERY DAY 90 tablet 3 024 Active cetirizine (ZyrTEC) 10 MG tablet TAKE 1 TABLET BY MOUTH EVERY DAY NEEDED 90 tablet 3 024 Active atorvastatin (Lipitor) 40 MG tablet TAKE 1 TABLET BY MOUTH EVERY DAY 90 tablet 1 Active atenolol (Tenormin) 100 MG tablet TAKE 1 TABLET BY MOUTH EVERY DAY 90 tablet 3 Active ergocalciferol (Vitamin D2) 1.25 MG (26573 UT) capsule Take 1 capsule (1.25 mg) by mouth 1 (one) time per week. 12 capsule 1 2024 Active Senna-Time 8.6 MG tabletIndicatio ns:Slow transit constipation TAKE 1 TABLET BY MOUTH 2 TIMES EVERY DAY NEEDED FOR CONSTIPATION 180 tablet 1 Active Senna-Time 8.6 MG tabletIndicatio ns:Slow transit constipation TAKE 1 TABLET BY MOUTH 2 TIMES EVERY DAY NEEDED FOR CONSTIPATION 180 tablet 1 024 2023 Discontinued(R eorder (will not trigger notification to Pharmacy)) Hospital, Clinic, or Other Facility Administered Medication Ordered Dose Route Frequency Start Date End Date Status triamcinolone acetonide (Kenalog-40) injection 40 mgIndications:Chronic left shoulder pain 40 mg IX Once 11/22/2024 11/22/2024 Ended lidocaine (Xylocaine) 2 % injection 40 mgIndications:Chronic left shoulder pain 40 mg IJ Once 11/22/2024 11/22/2024 Ended triamcinolone acetonide (Kenalog-40) injection 40 mgIndications:Chronic left shoulder pain 40 mg IX Once 11/22/2024 11/22/2024 Ended Active Problems Problem Noted Date Diagnosed Date Primary osteoarthritis of both shoulders Assessment & Plan (09/21/2024 2:22 PM EST): Will refer to PT, may need intra articular injection, refer to joint injection clinic. Continue Tylenol prn FU in 4m Encounter for immunization 09/21/2024 Excessive attrition of teeth, limited to enamel 08/15/2024 Mottled teeth 04/22/2024 Ill-fitting dentures 04/22/2024 Vitamin D deficiency 04/21/2024 Assessment & Plan (09/21/2024 2:23 PM EST): Didn't take VitD, not covered by insurance. I sent the rx to our pharmacy to see if he can pick it up with a special plan/discount. 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 Overview (02/24/2023): To Cipro Assessment & Plan (02/24/2023 11:16 AM EDT): to Cipro No recent episodes of anaphylaxis recommended to avoid cipro or similar antibiotics Prescription for EpiPen Tubular adenoma of colon 02/20/2023 Overview (12/10/2023): Colonoscopy at [facility] on 2017 and 04/2023 Assessment & Plan (12/10/2023 10:24 AM EST): S/p polypectomy on 04/2023 Next colonoscopy due 2027 Assessment & Plan (02/24/2023 11:17 AM EDT): Colonoscopy scheduled for April 2023 Right upper quadrant pain 02/20/2023 Primary insomnia 02/20/2023 Chronic low back pain 02/20/2023 Assessment & Plan (05/31/2024 2:19 PM EDT): Recurrent, has lumbar radiculopathy sxs Agreed to pain clinic referral Assessment & Plan (12/10/2023 10:25 AM EST): Recurrent I recommended stretching exercises and come to acupuncture clinic Rx for diclofenac gel or icy hot patch again Decline PT referral Assessment & Plan (08/20/2023 12:32 PM EDT): Discussed with pt options of treatment including PT and acupuncture, but he declines at this time Cont tylenol, add flexeril qHS + lidocaine patch prn Assessment & Plan (02/24/2023 11:15 AM EDT): Right sided back pain Seems to be muscular US on June 2022 wnl Use Tylenol PRN + Flexiril Use icy-hot patch for one week and then PRN Slow transit constipation 01/13/2019 Hyperlipidemia 12/11/2017 Assessment & Plan (09/21/2024 2:24 PM EST): Lipids are at goal on Atorvastatin 40mg, tolerates it well. Fu lipids on 04/2025 Essential hypertension 12/11/2017 Assessment & Plan (09/21/2024 2:21 PM EST): Fairly controlled. Compliant w/meds Continue atenolol+ amlodipine same dose Counseled re low salt diet/increase moderate physical activity. Check home BP BIW and prn CP/GREEN/BRAN Non smoking patient. Assessment & Plan (05/31/2024 2:18 PM EDT): Fairly controlled. Compliant w/meds Continue atenolol+ amlodipine same dose Counseled re low salt diet/increase moderate physical activity. Check home BP BIW and prn CP/GREEN/BRAN Non smoking patient. Assessment & Plan (12/10/2023 10:24 AM EST): Controlled. Compliant w/meds Continue atenolol + amlodipine same dose, tolerates well Counseled re low salt diet/increase moderate physical activity. Check home BP BIW and prn CP/GREEN/BRAN Non smoking patient. FU 4 m w labs Assessment & Plan (02/24/2023 11:18 AM EDT): BP is at goal Continue atenolol, amlodipine,, and lisinopril BMP wnl Counseled re low salt diet/increase moderate physical activity. Check home BP BIW and prn CP/GREEN/BRAN Non smoking patient. Diverticular disease of colon 12/11/2017 Benign prostatic hyperplasia 12/11/2017 Overview (02/24/2023): FU by TERRI Martin PSA 2022 Assessment & Plan (02/24/2023 11:16 AM EDT): Followed by TERRI Allergic rhinitis due to pollen 12/11/2017 Encounters Date Type Department Care Team Description 11/22/2024 11:00 AM EST Procedure Visit [facility] [address] [place] [phone] Alexandra Zabala MD Chronic left shoulder pain (Primary Dx) 11/22/2024 Travel 11/11/2024 Telephone [facility] [address] [place] [address] Cristina Swain MD January recall 11/07/2024 Telephone [facility] [address] [place] [address] Kobe Joel, DMD rs appt 11/03/[address] [address] Cristina Swain MD Slow transit constipation 10/31/2024 Refill [facility] [address] [place] [address] Cristina Swain MD Slow transit constipation 10/18/2024 11:00 AM EST Procedure Visit [address] [address] Alexandra Zabala MD Chronic right shoulder pain (Primary Dx) 10/18/2024 Travel 09/22/2024 Telephone [facility] [address] [place] [address] Cristina Swain MD TC-Joint Injection 09/21/2024 9:15 AM EST Office Visit [address] [address] Cristina Swain MD Primary osteoarthritis of both shoulders (Primary Dx); Encounter for immunization; Mixed hyperlipidemia; Vitamin D deficiency; Essential hypertension 09/21/2024 Travel 09/13/2024 Patient Outreach [facility] [address] [place] [phone] Cristina Swain MD Pre-visit Planning (SDOH screening negative and tobacco screening negative) 09/06/2024 Refill [facility] [address] [place] [address] Cristina Swain MD from Last 3 Months Immunizations Name Administration Dates Next Due Influenza High-dose Quadriva lent Preservative Free 08/20/2023 Influenza Quadrivalent Adjuvanted 09/05/2021,10/2020 Influenza injectable quadriv alent IIV4 with preservative 07/24/2015 Influenza, High Dose Seasona l, Preservative Free 08/24/2019,07/22/2018,09/02/2016 Influenza, Split (incl. norma fied surface antigen) 08/22/2015 Influenza, seasonal, injecta ble, preservative free 08/26/2017 Meningococcal MPSV4 08/22/2015 Pneumococcal Conjugate PCV 20 12/10/2023 Pneumococcal Polysaccharide PPSV23 07/21/2020, TD (adult), 2 Lf tetanus tox oid, preservative free, adsorbed 09/10/2007 Tdap 09/21/2024,04/10/2014 Zoster, Recombinant 07/21/2020 Zoster, live 04/10/2014 Social History Tobacco Use Types Packs/Day Years Used Date Smoking Tobacco: Never Smokeless Tobacco: Never Tobacco Cessation:Counseling Given: Not Answered Alcohol Use Standard Drinks/Week Comments Not Currently 0 (1 standard drink = 0.6 oz pur e alcohol) oca Alcohol Answer Date Recorded Frequency of Alcohol Consumption Not on file 08/20/2023 Average Number of Drinks Not on file 023 Frequency of Binge Drinking Not on file 08/09 Score 0 08/20/2023 Depression Answer Date Recorded Patient Health Questionnaire-9 Score 0 08/20/2023 Housing Stability Answer Date Recorded What is your housing situation today? I have toniefrancia schafer 09/13/[address] you li ve. Do you have problems with any of the following? None of the above 09/13/2024 Food Insecurity Answer Date Recorded Within the past 12 months, y ou worried that your food would run out before you got money to buy more: Never True 09/13/2024 Within the past 12 months,th e food you bought just didn't last and you didn't have enough money to get more: Never True 03/2024 Transportation Answer Date Recorded In the past 12 months, has l ack of transportation kept you from medical appts, meetings, work or from getting things needed for daily living? No 09/13/2024 Utilities Answer Date Recorded In the past 12 months, has t he electric, gas, oil or water company threatened to shut off services in your home? No 09/13/2024 Depression Answer Date Recorded Patient Health Questionnaire-2 Score 0 09/21/2024 Internet Access Answer Date Recorded Internet Access Q1 No 09/13/2024 Internet Access Q2 Not on file 09/13/2024 Sex and Gender Information Value Date Recorded Sex Assigned at Male 09/08/2022 10:19 AM EDT Legal Sex Male 10:19 AM EDT Gender Identity Male 09/08/2022 10:19 AM EDT Sexual Orientation Choose not to disclose 2021 10:19 AM EDT Last Filed Vital Signs Vital Sign Reading Time Taken Comments Blood Pressure 142/71 11/22/2024 10:47 AM EST Pulse 86 11/22/2024 10:47 AM EST Temperature 36.3 ??C (97.4 ??F) 11/22/2024 10:[address] Respiratory Rate 18 11/22/2024 10:47 AM EST Oxygen Saturation 99% 09/21/2024 8:44 AM EST Inhaled Oxygen Concentration - - Weight 64 kg (141 lb) 11/22/2024 10:47 AM EST Height 167.6 cm (5' 6 ) 11/22/2024 10:47 AM EST Body Mass Index 22.76 11/22/2024 10:47 AM EST Plan of Treatment Upcoming Encounters Date Type Department Care Team (Late st Contact Info) Description 12/13/2024 9:00 AM EST Office Visit [facility] [address] [place] [address] Kobe Joel, JESSICA [address] [place] [address] 01/16/2025 2:15 PM EDT Office Visit [facility] [address] [place] [address] Cristina Swain MD [address] [place] [address] Health Maintenance Due Date Last Done Comments CT Colonography 1950 FIT DNA/Cologuard 1950 FIT 1950 FOBT 1950 Sigmoidoscopy 1950 Alcohol/Substance Use Screening 1961 Hepatitis C Screening 1967 Zoster Vaccines (3 of 3) 09/15/2020 07/21/2020, 0612/2013 Dental X-Ray: Full Mouth 04/30/2024 04/29/2021 COVID-19 Vaccine ( season) 2024 06/06/2022, 09/05/2021, 01/29/2021, Additional history exists RSV Patients and Patients Aged 60 years or older (1 - 1-dose 75+ series) 2024 Dental X-Ray: Bitewings 01/13/2025 01/13/2024, 06/19 Dental Oral Exam 02/14/2025 08/15/2024, 01/13/2024 Dental Prophylaxis 02/14/2025 08/15/2024, 0 01/13/2024, 03/16/2023 SDOH Screening 09/13/2025 09/13/2024 Depression Screening 09/21/2025 09/21/2024, 08/20/20 23 Tobacco Screening 11/22/2025 11/22/2024 Colonoscopy 08/27/2027 08/27/2022 Colorectal Cancer Screening 08/27/2027 Lipid Panel 04/12/2029 04/12/2024, 04/2 07/2022, 07/10/2020 DTaP/Tdap/Td Vaccines (3 - Td or Tdap) 09/21/2034 09/21/2024, 04/10/2014, 09/10/2007 Meningococcal Vaccine Aged Out 08/22/2015 No ezequiel teri eligible based on patient's age to complete this topic Pneumococcal Vaccine: 65+ Years Completed 12/10/2023, 07/21/2020, 09/07/2014 Influenza Vaccine Completed 09/13/2024, , 09/05/2021, Additional history exists HIB Vaccines Aged Out No longer eligi ble based on patient's age to complete this topic HPV Vaccines Aged Out No longer eligi ble based on patient's age to complete this topic Hepatitis A Vaccines Aged Out No long er eligible based on patient's age to complete this topic Hepatitis B Vaccines Aged Out No long er eligible based on patient's age to complete this topic IPV Vaccines Aged Out No longer eligi ble based on patient's age to complete this topic RSV under 20 months Aged Out No longe r eligible based on patient's age to complete this topic Rotavirus Vaccines Aged Out No longer eligible based on patient's age to complete this topic Procedures Procedure Name Priority Date/Time Associated Diagnosis Comments WI ARTHROCENTESIS ASPIR&/INJ MAJOR JT/BURSA W/O US Routine 11/22/2024 10:45 AM EST Chronic left shoulder pain PSA, TOTAL Routine 11/22/2024 9:17 AM EST WI ARTHROCENTESIS ASPIR&/INJ MAJOR JT/BURSA W/O US Routine 10/18/2024 10:45 AM EST Chronic right shoulder pain XR SHOULDER 2+ VIEWS RIGHT Routine 09/21/2024 9:35 AM EST Primary osteoarthritis of both shoulders XR SHOULDER 2+ VIEWS LEFT Routine 09/21/2024 9:35 AM EST Primary osteoarthritis of both shoulders PROPHYLAXIS - ADULT Routine 08/15/2024 1 :00 PM EDT Dental plaque PERIODIC ORAL EVALUATION - ESTABLISHED PATIENT Routine 08/15/2024 1:00 PM EDT LIPID PANEL WITH REFLEX TO DIRECT LDL Routine 04/12/2024 8:13 AM EDT Essential hypertension BITEWINGS - 2 RADIOGRAPHIC IMAGES Routine 01/13/2024 10:00 AM EST HM COLONOSCOPY Routine 08/27/2022 from Last 3 Months or Most Recently Relevant to Health Maintenance Results * WI ARTHROCENTESIS ASPIR&/INJ MAJOR JT/BURSA W/O US (11/22/2024 10:45 AM EST) Narrative Alexandra Zabala MD - 11/22/2024 10:45 AM EST Alexandra Zabala MD ? 11/22/2024 11:00 AM Arthrocentesis Date/Time: 11/22/2024 10:45 AM Performed by: Alexandra Zabala MD Authorized by: Alexandra Zabala MD ?? Consent: ??Consent obtained: ??Verbal and written ??Consent given by: ??Patient ??Risks, benefits, and alternatives were discussed: yes ?Risks discussed: ??Pain ??Alternatives discussed: ??Referral [place] protocol: ??Procedure explained and questions answered to patient or proxy's satisfaction: yes ?Relevant documents present and verified: yes ?Test results available: yes ?Imaging studies available: yes ?Required blood products, implants, devices, and special equipment available: yes ?Site/side marked: yes ?Immediately prior to procedure, a time out was called: yes ?Patient identity confirmed: ??Verbally with patient Location: ??Location: ??Shoulder ??Shoulder: ??L glenohumeral Anesthesia: ??Anesthesia method: ??Topical application Procedure details: ??Preparation: Patient was prepped and draped in usual sterile fashion ?Needle gauge: ??22 G ??Ultrasound guidance: no ?Approach: ??Posterior ??Steroid injected: yes ?Specimen collected: no ?? Post-procedure details: ??Dressing: ??Adhesive bandage ??Procedure completion: ??Tolerated us Alexandra Zabala MD IN CLINIC/BEDSIDE ORDERABLES Fin al Result * PSA,Total (11/22/2024 9:17 AM EST) Prostate Specific Antigen 2.51 <0.05 - 4.0 ng/mL [facility] Comment:PSA methodology: Gunjan Infante i ChemiluminescentMicroparticle Immunoassay (CMIA) 11/22/2024 9:17 AM EST 11/22/2024 9:17 AM EST us Generic External Data Provider LAB BLOOD ORDERAB LES Final Result [facility] [address] [place] [phone] * WI ARTHROCENTESIS ASPIR&/INJ MAJOR JT/BURSA W/O US (10/18/2024 10:45 AM EST) Narrative Alexandra Zabala MD - 10/18/2024 10:45 AM EST Alexandra Zabala MD ? 10/18/2024 10:56 AM Arthrocentesis Date/Time: 10/18/2024 10:45 AM Performed by: Alexandra Zabala MD Authorized by: Alexandra Zabala MD ?? Consent: ??Consent obtained: ??Verbal and written ??Consent given by: ??Patient ??Risks, benefits, and alternatives were discussed: yes ?Risks discussed: ??Pain ??Alternatives discussed: ??Referral [place] protocol: ??Procedure explained and questions answered to patient or proxy's satisfaction: yes ?Relevant documents present and verified: yes ?Test results available: yes ?Imaging studies available: yes ?Required blood products, implants, devices, and special equipment available: yes ?Site/side marked: yes ?Immediately prior to procedure, a time out was called: yes ?Patient identity confirmed: ??Verbally with patient Location: ??Location: ??Shoulder ??Shoulder: ??R glenohumeral Anesthesia: ??Anesthesia method: ??Topical application Procedure details: ??Preparation: Patient was prepped and draped in usual sterile fashion ?Needle gauge: ??22 G ??Ultrasound guidance: no ?Approach: ??Posterior ??Steroid injected: yes ?Specimen collected: no ?? Post-procedure details: ??Dressing: ??Adhesive bandage ??Procedure completion: ??Tolerated Alexandra Zabala MD IN CLINIC/BEDSIDE ORDERABLES Fin al Result * XR Shoulder 2+ Views Right (09/21/2024 9:35 AM EST) Anatomical Region Laterality Modality Upper Extremities, Shoulder Right Radi ographic Imaging 09/21/2024 9:35 AM EST Narrative 09/21/2024 12:05 PM EST ?[facility] ?[address] ?[place] [address] ?XRay Report ? Signed ? Patient: Enzo Vivas,Vinny ?MR#: [id number] ?? [id number] ? : 1950 ?Acct:[id number] ? Age/Sex: 74 / M ?ADM Date: 09/21/24 ? Loc: HO.HHCX ? Attending Dr: Cristina Swain MD ? Ordering Physician: Cristina Swain MD ?? Date of Service: 09/21/24 ?? Procedure(s): XR shoulder RT min 2V ?? Accession Number(s): [id number] ? cc: Cristina Swain MD ? EXAMINATION: ?? XR SHOULDER, LEFT shoulder right ? CLINICAL INFORMATION: ?? Pain. Pain ? COMPARISON: ?? None available. ? TECHNIQUE: ?? AP external rotation, Grashey, scapular Y, and axillary views of the ?? left and right shoulder. ? FINDINGS: ? Left shoulder: No fracture, dislocation or destructive process. There ?? is mild narrowing of the glenohumeral joint space. No erosive change. ? Right shoulder: There is moderate narrowing of the glenohumeral joint ?? space. No fracture, dislocation or destructive lesion or erosive change. ? XR/XR shoulder RT min 2V ?? IMPRESSION: ?? Mild bilateral degenerative change. No acute findings. ? Electronically signed by: ??Lonny Castañeda MD ??09/21/2024 12:03 PM EST RP ? Dictated By: ?MaddyLonny ? Signed By: ?<Electronically signed by Lonny Castañeda MD in OV> ?09/21/24 1203 ? DD/ 0935 ? TD/TT: 09/21/24 1020 ? Clerk Secretary: ? Procedure Kain Waters - 09/21/2024 [facility] [address] [place] [address] XRay Report Signed Patient: Vinny Cordova#: [id number] : 9Acct:[id number] Age/Sex: 74 / MADM Date: 09/21/24 Loc: HO.HHCX Attending Dr: Cristina Swain MD Ordering Physician: Cristina Swain MD Date of Service: 09/21/24 Procedure(s): XR shoulder RT min 2V Accession Number(s): [id number] cc: Cristina Swain MD EXAMINATION: XR SHOULDER, LEFT shoulder right CLINICAL INFORMATION: Pain. Pain COMPARISON: None available. TECHNIQUE: AP external rotation, Grashey, scapular Y, and axillary views of the left and right shoulder. FINDINGS: Left shoulder: No fracture, dislocation or destructive process. There is mild narrowing of the glenohumeral joint space. No erosive change. Right shoulder: There is moderate narrowing of the glenohumeral joint space. No fracture, dislocation or destructive lesion or erosive change. XR/XR shoulder RT min 2V IMPRESSION: Mild bilateral degenerative change. No acute findings. Electronically signed by: Lonny Castañeda MD 09/21/2024 12:03 PM EST Dictated By: Lonny Castañeda MD Signed By: <Electronically signed by Lonny Castañeda MD in OV> 09/21/24 1203 DD/ 0935 TD/TT: 09/21/24 1020 Clerk Secretary: Cristina Swain MD IMG XR PROCEDURES Final Result * XR Shoulder 2+ Views Left (09/21/2024 9:35 AM EST) Anatomical Region Laterality Modality Upper Extremities, Shoulder Left Radi ographic Imaging 09/21/2024 9:35 AM EST Narrative 09/21/2024 12:05 PM EST ?[facility] ?[address] ?[place] [address] ?XRay Report ? Signed ? Patient: Enzo Vivas,Vinny ?MR#: [id number] ?? [id number] ? : 1950 ?Acct:[id number] ? Age/Sex: 74 / M ?ADM Date: 11/13/24 ? Loc: HO.HHCX ? Attending Dr: Cristina Swain MD ? Ordering Physician: Cristina Swain MD ?? Date of Service: 09/21/24 ?? Procedure(s): XR shoulder LT min 2V ?? Accession Number(s): [id number] ? cc: Cristina Swain MD ? EXAMINATION: ?? XR SHOULDER, LEFT shoulder right ? CLINICAL INFORMATION: ?? Pain. Pain ? COMPARISON: ?? None available. ? TECHNIQUE: ?? AP external rotation, Grashey, scapular Y, and axillary views of the ?? left and right shoulder. ? FINDINGS: ? Left shoulder: No fracture, dislocation or destructive process. There ?? is mild narrowing of the glenohumeral joint space. No erosive change. ? Right shoulder: There is moderate narrowing of the glenohumeral joint ?? space. No fracture, dislocation or destructive lesion or erosive change. ? XR/XR shoulder LT min 2V ?? IMPRESSION: ?? Mild bilateral degenerative change. No acute findings. ? Electronically signed by: ??Lonny Castañeda MD ??09/21/2024 12:03 PM EST RP ? Dictated By: ?Lonny Castañeda MD ? Signed By: ?<Electronically signed by Lonny Castañeda MD in OV> ?09/21/24 1203 ? DD/ 0935 ? TD/TT: 09/21/24 1020 ? Clerk Secretary: ? Procedure Note Irais, Kain - 09/21/[address] [address] XRay Report Signed Patient: Vinny Cordova#: [id number] : 9Acct:[id number] Age/Sex: 74 / MADM Date: 09/21/24 Loc: HO.HHCX Attending Dr: Cristina Swain MD Ordering Physician: Cristina Swain MD Date of Service: 09/21/24 Procedure(s): XR shoulder LT min 2V Accession Number(s): [id number] cc: Cristina Swain MD EXAMINATION: XR SHOULDER, LEFT shoulder right CLINICAL INFORMATION: Pain. Pain COMPARISON: None available. TECHNIQUE: AP external rotation, Grashey, scapular Y, and axillary views of the left and right shoulder. FINDINGS: Left shoulder: No fracture, dislocation or destructive process. There is mild narrowing of the glenohumeral joint space. No erosive change. Right shoulder: There is moderate narrowing of the glenohumeral joint space. No fracture, dislocation or destructive lesion or erosive change. XR/XR shoulder LT min 2V IMPRESSION: Mild bilateral degenerative change. No acute findings. Electronically signed by: Lonny Castañeda MD 09/21/2024 12:03 PM [facility] Dictated By: Lonny Castañeda MD Signed By: <Electronically signed by Lonny Castañeda MD in OV> 09/21/24 1203 DD/ 0935 TD/TT: 09/21/24 1020 Clerk Secretary: Cristina Swain MD IMG XR PROCEDURES Final Result * Lipid Panel with Reflex to Direct LDL (04/12/2024 8:13 AM EDT) Triglycerides 83 <150 mg/dL [facility] Comment:Desirable Triglyceri de: less than 150 mg/dLBorderline High Triglyceride 150-199 mg/dLHigh Triglyceride: 200-499 mg/dLVery High Triglyceride: greater than or equal to 5OO mg/dL Cholesterol 149 <200 mg/dL [facility] Comment:Desirable Cholestero l: less than 200 mg/dLBorderline High Cholesterol: 200-239 mg/dLHigh Cholesterol: greater than 239 mg/dL LDL Cholesterol Calculated 88 <100 mg/dL [facility] Comment:Desirable LDL: less than 100 mg/dLNear Optimal/Above Optimal LDL: 110- 129 mg/dLBorderline High LDL: 130-159 mg/dLHigh LDL: 160-189 mg/dLVery High LDL: greater than or equal to 190 mg/dL HDL Cholesterol 45 >40 mg/dL [facility] Comment:Desirable HDL: great er than 40 mg/dL Note: This HDL assay may give artificially low results in patients with liver disease. Blood 04/12/2024 8:13 AM EDT 04/12/2024 11:51 AM EDT us Cristina Swain MD LAB BLOOD ORDERABLES Fin al Result [facility] [address] [place] [phone] * (ABNORMAL) Colonoscopy (08/27/2022) Colonoscopy Normal(A) Normal 08/27/2022 Narrative Kassidy Arroyo RN - 08/27/2022 3:19 PM EDT 5 year F/U see Patho report in [facility] for more detail re. f/u us Historical Provider HEALTH MAINTENANCE Final Result from Last 3 Months or Most Recently Relevant to Health Maintenance Insurance [facility] [address] [place] [id number] DENTAL - [facility] [address] [place] [address] [phone] [place] [address] [phone] [place] [phone] Care Teams Comptometer Operator Relationship Specialty Start Date End Date Cristina Swain MD [address] [place] [phone] PCP - General Family Medicine 07/14/18
--- OUTSIDE RECORDS SUMMARY | 2024-11-30 08:25 | XMS_ITS | Encounter Summary ---
Author Organization [employer] Address [address] [facility] 7t [place] [address] Care Team Providers Care Delivery Truck Driver Name Role Phone Cristina Swain MD Primary Care Provider + Reason for Visit * Reason Comments Shoulder Injection Left Encounter Details Date Type Department Care Team (Latest Contact Info) Description 11/22/2024 11:00 AM EST Procedure Visit [facility] MED[facility] [address] [place] [address] Alexandra Zabala MD [address] [place] [address] Chronic left shoulder pain (Primary Dx) Social History Tobacco Use Types Packs/Day Years [...] is your housing situation today? I have tonie schafer 09/13/[address] you [...] not to disclose 2021 10:19 AM EDT documented as of this encounter Last Filed Vital Signs Vital Sign Reading Time Taken Comments Blood Pressure 142/71 11/22/2024 10:47 AM EST Pulse 86 11/22/2024 10:47 AM EST Temperature 36.3 ??C (97.4 ??F) 11/22/2024 10:[address] Respiratory Rate 18 11/22/2024 10:47 AM EST Oxygen Saturation - - Inhaled Oxygen Concentration - - Weight 64 kg (141 lb) 11/22/2024 10:47 AM EST Height 167.6 cm (5' 6 ) 11/22/2024 10:47 AM EST Body Mass Index 22.76 11/22/2024 10:47 AM EST documented in this encounter Progress Notes * Alexandra Zabala MD - 11/22/2024 11:00 AM ESTAssociated Order(s): Arthrocentesis Post-Procedure Diagnose(s): Chronic left shoulder pain Patient ID: Vinny Vivas is a 74 y.o. male. Arthrocentesis Date/Time: 11/22/2024 10:45 AM Performed by: Alexandra Zabala MD Authorized by: Alexandra Zabala MD Consent: Consent obtained: Verbal and written Consent given by: Patient Risks, benefits, and alternatives were discussed: yes Risks discussed: Pain Alternatives discussed: Referral [place] protocol: Procedure explained and questions answered to patient or proxy's satisfaction: yes Relevant documents present and verified: yes Test results available: yes Imaging studies available: yes Required blood products, implants, devices, and special equipment available: yes Site/side marked: yes Immediately prior to procedure, a time out was called: yes Patient identity confirmed: Verbally with patient Location: Location: Shoulder Shoulder: L glenohumeral Anesthesia: Anesthesia method: Topical application Procedure details: Preparation: Patient was prepped and draped in usual sterile fashion Needle gauge: 22 G Ultrasound guidance: no Approach: Posterior Steroid injected: yes Specimen collected: no Post-procedure details: Dressing: Adhesive bandage Procedure completion: Tolerated Subjective Patient ID: Vinny Vivas is a 74 y.o. male who presents for Shoulder Injection (Left). Shoulder Pain The pain is present in the left shoulder. This is a chronic problem. The current episode started more than 1 year ago. There has been no history of extremity trauma. The problem occurs constantly. The problem has been unchanged. The quality of the pain is described as aching and dull. The pain is at a severity of 6/10. The pain is moderate. Associated symptoms include an inability to bear weight,joint locking and a limited range of motion. The symptoms are aggravated by activity. She has triedacetaminophen for the symptoms. The treatment provided mild relief. Her past medical history is significant for osteoarthritis. Review of Systems Constitutional: Negative. Respiratory: Negative. Cardiovascular: Negative. Gastrointestinal: Negative. Genitourinary: Negative. Musculoskeletal: Positive for arthralgias. Objective Physical Exam Constitutional: Appearance: Normal appearance. Cardiovascular: Rate and Rhythm: Normal rate and regular rhythm. Pulmonary: Effort: Pulmonary effort is normal. Breath sounds: Normal breath sounds. Musculoskeletal: Left shoulder: Tenderness and bony tenderness present. Decreased range of motion. Neurological: General: No focal deficit present. Mental Status: She is alert. Psychiatric: Mood and Affect: Mood normal. Behavior: Behavior normal. Assessment/Plan Diagnoses and all orders for this visit: Chronic left shoulder pain Comments: Pt injected with 2ml of 40mg kenolog and 2ml of 2%lidocaine pt tolerated the procedure well Advised Ice and Active motion Other orders - Arthrocentesis documented in this encounter Plan of Treatment Upcoming Encounters Date Type Department Care Team (Late st Contact Info) Description 12/13/2024 9:00 AM EST Office Visit [facility] CHC ADULT DENTAL [address] [place], [place] [phone] Kobe Joel, DMD [address] [place] [address] 01/16/2025 2:15 PM EDT Office Visit [facility] 230 [place] [address] Cristina Swain MD 230 [place] [address] documented as of this encounter Procedures Procedure Name Priority Date/Time Associated Diagnosis Comments MO ARTHROCENTESIS ASPIR&/INJ MAJOR JT/BURSA W/O US Routine 11/22/2024 10:45 AM EST Chronic left shoulder pain documented in this encounter Results * MO ARTHROCENTESIS ASPIR&/INJ MAJOR JT/BURSA W/O US (11/22/2024 [...] yes ?Risks discussed: ??Pain ??Alternatives discussed: ??Referral [place] protocol: ??Procedure explained and questions answered to [...] MD IN CLINIC/BEDSIDE ORDERABLES Fin al Result documented in this encounter Visit Diagnoses Diagnosis Chronic left shoulder pain- Primary Pain in joint, shoulder region documented in this encounter Administered Medications Inactive Administered Medications - up to 3 most recent administrations Medication Order MAR Action Action Date Dose Rate Site lidocaine (Xylocaine) 2 % injection 40 mg 40 mg (2 mL), Injection, Once, On Thu11/22/24 at 1100, For 1 doseIndications:Chronic left shoulder pain Given 11/22/2024 11:00 AM EST 40 mg triamcinolone acetonide (Kenalog-40) injection 40 mg 40 mg, Intra-articular, Once, On Thu11/22/24 at 1100, For 1 doseIndications:Chronic left shoulder pain Given 11/22/2024 11:00 AM EST 40 mg triamcinolone acetonide (Kenalog-40) injection 40 mg 40 mg, Intra-articular, Once, On Thu11/22/24 at 1100, For 1 doseIndications:Chronic left shoulder pain Given 11/22/2024 11:00 AM EST 40 mg documented in this encounter Additional Health Concerns Assessment Noted Time PHQ-9 Depression Total Score: 0 08/20/20 23 11:46 AM EDT documented as of this encounter Care Teams Delivery Truck Driver Relationship Specialty Start Date End Date Cristina Swain MD [address] [place] [address] PCP - General Family Medicine 07/14/18 documented as of this encounter
--- OUTSIDE RECORDS SUMMARY | 2024-11-30 08:25 | XMS_ITS | Encounter Summary ---
Author Organization [employer] Address [address] [facility] 7t [place] [address] Care Team Providers Care Purchasing Administrator Name Role Phone Cristina Swain MD Primary Care Provider + Encounter Details Date Type Department Care Team (Latest Contact Info) Description 11/22/2024 Travel Social History Tobacco Use Types Packs/Day Years Used Date Smoking Tobacco: Never Smokeless Tobacco: Never Alcohol Use Standard Drinks/Week Comments Not Currently [...] t he electric, gas, oil or water [employer] threatened to shut off services in your [...] AM EDT documented as of this encounter Plan of Treatment Upcoming Encounters Date Type Department Care Team (Late st Contact Info) Description 12/13/2024 9:00 AM EST Office Visit [facility] CHC ADULT DENTAL [address] [place] [address] Kobe Joel, DMD 505 [place] [address] 01/16/2025 2:15 PM EDT Office Visit [facility] MEDICINE 230 [place] [address] Cristina Swain MD 230 [place] [address] documented as of this encounter Visit Diagnoses Not on filedocumented in this encounter Additional Health Concerns Assessment Noted Time PHQ-9 Depression Total Score: 0 08/20/20 23 11:46 AM EDT documented as of this encounter Care Teams Purchasing Administrator Relationship Specialty Start Date End Date Cristina Swain MD [address] [place] [phone] PCP - General Family Medicine 07/14/18 documented as of this encounter
--- OUTSIDE RECORDS SUMMARY | 2024-11-30 08:25 | XMS_ITS | Encounter Summary ---
Author Organization [employer] Address [address] [facility] 7t [place] [address] Care Team Providers Care Mission Assessment Specialist Name Role Phone Cristina Swain MD Primary Care Provider + Reason for Visit * Reason Onset Date Comments January recall 11/11/2024 Encounter Details Date Type Department Care Team ([facility] st Contact Info) Description 11/11/2024 Telephone [facility] [address] [place], [place] [phone] Cristina Swain MD [address] [place], [place] [phone] January recall Social History Tobacco Use Types Packs/Day Years [...] your housing situation today? I have tonie hanh 09/13/[address] you li [...] AM EDT documented as of this encounter Miscellaneous Notes * Telephone Encounter - Mamie Mendoza [place] - 11/11/2024 10:43 AM EST Tc to pt to schedule fu htn/OA recall appt. Appt has been scheduled for 01/16/25 at 3:15 am. documented in this encounter Plan of Treatment Upcoming Encounters Date Type Department Care Team (Late st Contact Info) Description 12/13/2024 9:00 AM EST Office Visit [facility] CHC ADULT DENTAL 505 [place] [address] Kobe Joel, DMD 505 [place] [address] 01/16/2025 2:15 PM EDT Office Visit [facility] MEDICINE [address] [place], [place] [phone] Cristina Swain MD 230 [place] [address] documented as of this encounter Visit Diagnoses Not on filedocumented in this encounter Additional Health Concerns Assessment Noted Time PHQ-9 Depression Total Score: 0 08/20/20 23 11:46 AM EDT documented as of this encounter Care Teams Mission Assessment Specialist Relationship Specialty Start Date End Date Cristina Swain MD [address] [place] [phone] PCP - General Family Medicine 07/14/18 documented as of this encounter
--- OUTSIDE RECORDS SUMMARY | 2024-11-30 08:25 | XMS_ITS | Encounter Summary ---
Author Organization [employer] Address 75 [facility] 7t [place] [address] Care Team Providers Care Milling Machine Tender Name Role Phone Cristina Swain MD Primary Care Provider + Reason for Visit * Reason Onset Date Comments rs appt 11/07/2024 Encounter Details Date Type Department Care Team ([facility] st Contact Info) Description 11/07/2024 Telephone C CHC ADULT DENTAL [address] [place], [place] [phone] Kobe Joel, DMD [address] [place], [place] [phone] rs appt Social History Tobacco Use Types Packs/Day Years [...] encounter Miscellaneous Notes * Telephone Encounter - Mary Ellen France - 11/07/2024 11:26 AM EST Patient called in to reschedule 11/10 appt for an earlier time 1 pm preferably on a different date.Per office provider does not have any available appts. Patient will call back next week to try to reschedule. documented in this encounter Plan of Treatment Upcoming Encounters Date Type Department Care Team (Late st Contact Info) Description 12/13/2024 9:00 AM EST Office Visit [facility] CHC ADULT DENTAL [address] [place] [address] Kobe Joel, DMD [address] [place] [address] 01/16/2025 2:15 PM EDT Office Visit [facility] MEDICINE 230 [place] [address] Cristina Swain MD 230 [place] [address] documented as of this encounter Visit Diagnoses Not on filedocumented in this encounter Additional Health Concerns Assessment Noted Time PHQ-9 Depression Total Score: 0 08/20/20 23 11:46 AM EDT documented as of this encounter Care Teams Milling Machine Tender Relationship Specialty Start Date End Date Cristina Swain MD [address] [place] [address] PCP - General Family Medicine 07/14/18 documented as of this encounter
--- OUTSIDE RECORDS SUMMARY | 2024-11-30 08:26 | XMS_ITS | Encounter Summary ---
Author Organization [facility] [employer] Address 75 [facility] 7t [place] [address] Care Team Providers Care Cloth Calender Name Role Phone Cristina Swain MD Primary Care Provider + Encounter Details Date Type Department Care Team (Latest Contact Info) Description 06/19/2022 Abstract [facility] CONVERSIONS Dental, Provider, DDS Social History Tobacco Use Types Packs/Day Years Used Date Smoking Tobacco: Never Assessed Sex and Gender Information Value Date Recorded [...] Description 12/13/2024 9:00 AM EST Office Visit [facility] CHC ADULT DENTAL 505 [place] [address] Kobe Joel, DMD 505 [place] [address] 01/16/2025 2:15 PM EDT Office Visit [facility] MEDICINE 230 [place] [address] Cristina Swain MD [address] [place], [place] documented as of this encounter Visit Diagnoses Not on filedocumented in this encounter Care Teams Cloth Calender Relationship Specialty Start Date End Date Cristina Swain MD [address] [place] [phone] PCP - General Family Medicine 07/14/18 documented as of this encounter
--- OUTSIDE RECORDS SUMMARY | 2024-11-30 08:26 | XMS_ITS | Encounter Summary ---
Author Organization [employer] Address [address] [facility] 7t [place] [address] Care Team Providers Care Security Installer Name Role Phone Cristina Swain MD Primary Care Provider + Encounter Details Date Type Department Care Team (Late Contact Info) Description 05/04/2023 Abstract [facility] ADULT DENTAL [address] [place] [address] Jese Hankins DDS [address] [place] [address] Social History Tobacco Use Types Packs/Day Years Used Date Smoking Tobacco: Never Smokeless Tobacco: Never Alcohol Use Standard Drinks/Week Comments Yes 0 (1 standard drink = 0.6 oz pur e alcohol) oca PHQ-2 Answer Date Recorded Patient Health Questionnaire-2 Score 0 02/24/2023 Sex and Gender Information Value Date Recorded Sex Assigned at Male 09/08/2022 10:19 AM EDT Legal Sex Male 10:19 AM EDT Gender Identity Male 09/08/2022 10:19 AM EDT Sexual Orientation Choose not to disclose 2021 10:19 AM EDT COVID-19 Exposure Response Date Recorded In the last 10 days, have yo u been in contact with someone who was confirmed or suspected to have Coronavirus/COVID-19? No / Unsure 04/30/2023 7:47 AM EDT documented as of this encounter Plan of Treatment Upcoming Encounters Date Type Department Care Team (Late Contact Info) Description 12/13/2024 9:00 AM EST Office Visit [facility] ADULT DENTAL [address] [place] [address] Kobe Joel, DMD [address] [place] [address] 01/16/2025 2:15 PM EDT Office Visit [facility] MEDICINE [address] [place] [address] Cristina Swain MD [address] [place] [address] documented as of this encounter Visit Diagnoses Not on filedocumented in this encounter Care Teams Security Installer Relationship Specialty Start Date End Date Cristina Swain MD [address] [place] [address] [phone] PCP - General Family Medicine 07/14/18 documented as of this encounter
--- OUTSIDE RECORDS SUMMARY | 2024-11-30 08:26 | XMS_ITS | Encounter Summary ---
Author Organization [facility] [employer] Address [address] [facility] 7t [place] [address] Care Team Providers Care Joint Runner Name Role Phone Cristina Swain MD Primary Care Provider + Encounter Details Date Type Department Care Team (Latest Contact Info) Description 04/23/2021 Abstract [facility] CONVERSIONS Dental, Provider, DDS Social History [...] Description 12/13/2024 9:00 AM EST Office Visit [facility] CHC ADULT DENTAL 505 [place] [address] Kobe Joel, DMD 505 [place] [address] 01/16/2025 2:15 PM EDT Office Visit [facility] MEDICINE 230 [place] [address] Cristina Swain MD [address] [place], [place] documented as of this encounter Visit Diagnoses Not on filedocumented in this encounter Care Teams Joint Runner Relationship Specialty Start Date End Date Cristina Swain MD [address] [place] [phone] PCP - General Family Medicine 07/14/18 documented as of this encounter
--- OUTSIDE RECORDS SUMMARY | 2024-11-30 08:26 | XMS_ITS | Encounter Summary ---
Author Organization [employer] Address [address] [facility] 7t [place] [address] Care Team Providers Care Magnetic Prospector Name Role Phone Cristina Swain MD Primary Care Provider + Reason for Visit * Reason Comments Med Refill Encounter Details Date Type Department Care Team ([facility] st Contact Info) Description 11/03/2024 Refill [facility] [address] [place], [place] [phone] Cristina Swain MD [address] [place], [place] [phone] Slow transit constipation Social History Tobacco Use Types Packs/Day Years [...] Description 12/13/2024 9:00 AM EST Office Visit [facility] CH[facility] ADULT DENTAL 505 [place] [address] Kobe Joel, DMD [address] [place], [place] [phone] 01/16/2025 2:15 PM EDT Office Visit [facility] [address] [place] [address] Cristina Swain MD [address] [place] [address] documented as of this encounter Visit Diagnoses Diagnosis Slow transit constipation documented in this encounter Additional Health Concerns Assessment Noted Time PHQ-9 Depression Total Score: 0 08/20/20 23 11:46 AM EDT documented as of this encounter Care Teams Magnetic Prospector Relationship Specialty Start Date End Date Cristina Swain MD [address] [place] [phone] PCP - General Family Medicine 07/14/18 documented as of this encounter
--- OUTSIDE RECORDS SUMMARY | 2024-11-30 08:26 | XMS_ITS | Encounter Summary ---
Author Organization [facility] [employer] Address [address] [place] [address] 7t [place] [address] Care Team Providers Care Hide Puller Name Role Phone Cristina Swain MD Primary Care Provider + Encounter Details Date Type Department Care Team (Late st Contact Info) Description 12/25/2022 Orders Only [facility] MED & PEDS [address] [place] [address] Lila Waldron LPN Social History Tobacco Use Types Packs/Day Years [...] Description 12/13/2024 9:00 AM EST Office Visit [facility] CHC ADULT DENTAL [address] [place] [address] Kobe Joel, DMD [address] [place] [address] 01/16/2025 2:15 PM EDT Office Visit [facility] MEDICINE 230 [place] [address] Cristina Swain MD [address] [place] [address] documented as of this encounter Visit Diagnoses Not on filedocumented in this encounter Care Teams Hide Puller Relationship Specialty Start Date End Date Cristina Swain MD [address] [place] [phone] PCP - General Family Medicine 07/14/18 documented as of this encounter
--- OUTSIDE RECORDS SUMMARY | 2024-11-30 08:26 | XMS_ITS | Encounter Summary ---
Author Organization [employer] Address 75 [facility] 7t [place] [address] Care Team Providers Care Environmental Studies Program Director Name Role Phone Cristina Swain MD Primary Care Provider + Encounter Details Date Type Department Care Team (Latest Contact Info) Description 09/05/2019 Abstract [facility] CONVERSIONS Dental, Provider, DDS Social History [...] Description 12/13/2024 9:00 AM EST Office Visit [facility] CHC ADULT DENTAL [address] [place] [address] Kobe Joel, DMD [address] [place] [address] 01/16/2025 2:15 PM EDT Office Visit [facility] MEDICINE [address] [place] [address] Cristina Swain MD [address] [place] [address] documented as of this encounter Visit Diagnoses Not on filedocumented in this encounter Care Teams Environmental Studies Program Director Relationship Specialty Start Date End Date Cristina Swain MD [address] [place] [phone] PCP - General Family Medicine 07/14/18 documented as of this encounter
--- OUTSIDE RECORDS SUMMARY | 2024-11-30 08:26 | XMS_ITS | Encounter Summary ---
Author Organization [facility] [employer] [facility] Address 75 [facility] 7t [place] [address] Care Team Providers Care Metal Coater Name Role Phone Cristina Swain MD Primary Care Provider + Encounter Details Date Type Department Care Team (Late st Contact Info) Description 12/02/2022 Orders Only [address] [address] Eve Hope LPN Social History Tobacco Use Types Packs/Day [...] Description 12/13/2024 9:00 AM EST Office Visit [facility] CHC ADULT DENTAL [address] [place] [address] Kobe Joel, JESSICA [address] [place] [address] 01/16/2025 2:15 PM EDT Office Visit [facility] MEDICINE [address] [place] [address] Cristina Swain MD [address] [place] [address] documented as of this encounter Visit Diagnoses Not on filedocumented in this encounter Care Teams Metal Coater Relationship Specialty Start Date End Date Cristina Swain MD [address] [place] [address] PCP - General Family Medicine 07/14/18 documented as of this encounter
--- OUTSIDE RECORDS SUMMARY | 2024-11-30 08:26 | XMS_ITS | Encounter Summary ---
Author Organization [employer] Address [address] [facility] 7t [place] [address] Care Team Providers Care Spray Stainer Name Role Phone Cristina Swain MD Primary Care Provider + Reason for Visit * Reason Comments Med Refill Encounter Details Date Type Department Care Team ([facility] st Contact Info) Description 10/31/2024 Refill [facility] MEDICINE [address] [place], [place] [phone] Cristina Swain MD [address] [place], [place] [phone] Slow transit constipation Social History Tobacco Use [...] Description 12/13/2024 9:00 AM EST Office Visit [facility] CHC ADULT DENTAL [address] [place] [address] Kobe Joel, DMD [address] [place], [place] [phone] 01/16/2025 2:15 PM EDT Office Visit [facility] MEDICINE [address] [place] [address] Cristina Swain MD [address] [place] [address] documented as of this encounter Visit Diagnoses Diagnosis Slow transit constipation documented in this encounter Additional Health Concerns Assessment Noted Time PHQ-9 Depression Total Score: 0 08/20/20 23 11:46 AM EDT documented as of this encounter Care Teams Spray Stainer Relationship Specialty Start Date End Date Cristina Swain MD [address] [place] [address] PCP - General Family Medicine 07/14/18 documented as of this encounter
== END 2024-11-30 08:48 | disposition home or self-care (01) ==
PROVIDERS: PCP Internal Medicine; Visit Provider Urology
DX: R97.20 Elevated prostate specific antigen [PSA] (principal); N40.1 Benign prostatic hyperplasia with lower urinary tract symptoms; N13.8 Other obstructive and reflux uropathy; Z13.9 Encounter for screening, unspecified
CPT/HCPCS: 99214

== ENCOUNTER → 2024-11-30 08:20 | Outpatient (BNVA) | payer OTHER, SELFPAY | PROVIDERS: PCP Internal Medicine; Visit Provider Urology | DX: N40.1 Benign prostatic hyperplasia with lower urinary tract symptoms (principal); N13.8 Other obstructive and reflux uropathy; R97.20 Elevated prostate specific antigen [PSA] | CPT/HCPCS: 51798; 81003; 99212 ==

== ENCOUNTER 2025-07-24 08:15 | Outpatient (REF) | payer OTHER, SELFPAY ==
--- OUTSIDE RECORDS SUMMARY | 2025-07-24 09:07 | XMS_ITS | Clinical Summary ---
Author Organization [employer] Address [address] [place] [address] 7t [place] [address] Care Team Providers Care Plant Superintendent Name Role Phone Cristina Swain MD Primary Care Provider + Allergies Active Allergy Reactions Criticality Noted Date Comments Ciprofloxacin Angioedema 04/25/2013 Medications Acetaminophen Extra Strength 500 MG tabletIndication s:Arthritis TAKE 1 TABLET BY MOUTH EVERY 6 HOURS NEEDED FOR PAIN 90 tablet 3 3 Active finasteride (Proscar) 5 MG tablet TAKE 1 TABLET ORALLY DAILY FOR 90 DAYS 3 Active cyclobenzaprine (Flexeril) 10 MG tablet TAKE 1 TABLET BY MOUTH EVERYDAY AT BEDTIME 30 tablet 3 Active Menthol, Topical Analgesic, (Icy Hot) 5 % patchIndications :Chronic bilateral low back pain without sciatica Use 1 patch daily on affected area 14 patch 4 Active cetirizine (ZyrTEC) 10 MG tablet TAKE 1 TABLET BY MOUTH EVERY DAY NEEDED 90 tablet 3 4 Active atenolol (Tenormin) 100 MG tablet TAKE 1 TABLET BY MOUTH EVERY DAY 90 tablet 3 4 Active atorvastatin (Lipitor) 40 MG tablet TAKE 1 TABLET BY MOUTH EVERY DAY 90 tablet 1 5 Active EPINEPHrine (Epipen) 0.3 MG/0.3ML injection syringeIndicatio ns:Anaphylaxis, sequela Inject 0.3 mL (0.3 mg) as directed 1 (one) time for 1 dose. 2 each 3 5 Active amLODIPine (Norvasc) 10 MG tablet TAKE 1 TABLET BY MOUTH EVERY DAY 90 tablet 3 5 Active Azelastine HCl 137 MCG/SPRAY solution ADMINISTER 1 SPRAY INTO EACH NOSTRIL 2 TIMES DAILY. 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 Compliant w/meds Continue atenolol+ amlodipine same dose Counseled re low salt diet/increase moderate physical activity. Check home BP BIW and prn CP/GREEN/BRAN Non smoking patient. Assessment & Plan (09/21/2024 2:21 PM EST): [...] hyperplasia 12/11/2017 Overview (02/24/2023): FU by [facility] Nl PSA 2022 Assessment & Plan (02/24/2023 11:16 AM EDT): Followed by [facility] Allergic rhinitis due to pollen 12/11/2017 Assessment & Plan (03/16/2025 4:28 PM EDT): Continue Zyrtec daily. Use Astelin in the morning plus Flonase at night Wear mask when outdoors as much as Encounters Date Type Department Care Team Description 06/23/2025 Refill [facility] MEDICINE [address] [place] [address] Cristina Swain MD Slow transit constipation 05/26/2025 Refill [facility] [address] [place] [address] Cristina Swain MD Slow transit constipation 05/11/2025 Telephone [facility] [address] [place], [place] [phone] Cristina Swain MD July recall 04/26/2025 Refill [facility] [address] [place], [place] [phone] Cristina Swain MD Slow transit constipation from Last 3 Months Immunizations Immunization Administration Dates Next Due Influenza High-dose Quadriva [...] Answer Date Recorded Internet Access Q1 No 03/10/2025 Internet Access Q2 I do not want or need it 12/2024 Sex and Gender Information Value Date Recorded Sex Assigned at Male 09/08/2022 10:19 AM EDT Legal Sex Male 10:19 AM EDT Gender Identity Male 09/08/2022 10:19 AM EDT Sexual Orientation Choose not to disclose 2021 10:19 AM EDT Last Filed Vital Signs Vital Sign Reading Time Taken Comments Blood Pressure 135/82 03/16/2025 12:17 PM EDT Pulse 68 03/16/2025 11:29 AM EDT Temperature 36.2 C (97.1 F) 03/16/2025 11:29 AM EDT Respiratory Rate 18 11/22/2024 10:47 AM EST Oxygen Saturation 98% 03/16/2025 11:29 AM EDT Inhaled Oxygen Concentration - - Weight 64.4 kg (142 lb) 03/16/2025 11:29 AM EDT Height 167.6 cm (5' 6 ) 03/16/2025 11:29 AM EDT Body Mass Index 22.92 03/16/2025 11:29 AM EDT Plan of Treatment Upcoming Encounters Date Type Department Care Team (Late st Contact Info) Description 08/01/2025 10:30 AM EDT Office Visit [facility] [address] [place] [address] Cristina Swain MD [address] [place] [address] 08/25/2025 10:15 AM EDT Office Visit [facility] ADULT DENTAL [address] [place] [address] Connor Burgosaris [address] [place] [address] Health Maintenance Due Date Last Done Comments CT Colonography 1949 FIT DNA/Cologuard 1949 FIT 1949 FOBT 1949 Sigmoidoscopy 1949 Alcohol/Substance Use Screening 1961 Hepatitis C Screening 1967 Zoster Vaccines (3 of 3) 09/15/2020 07/21/2020, 12/2013 COVID-19 Vaccine ( season) 2025 06/06/2022, 09/05/2021, 01/29/2021, Additional history exists Influenza Vaccine (#1) 2025 , 08/20/2023, 09/05/2021, Additional history exists Dental Oral Exam 08/17/2025 02/14/2025, 05/2024, 01/13/2024 Dental Prophylaxis 08/17/2025 02/14/2025, 1 , 01/13/2024, Additional history exists Depression Screening 09/21/2025 09/21/2024, 08/20/20 23 Dental X-Ray: Bitewings 02/15/2026 02/15/20 25, 01/13/2024, 06/19/2022 SDOH Screening 03/10/2026 03/10/2025 Tobacco Screening 03/16/2026 03/16/2025 Colonoscopy 08/27/2027 08/27/2022 Colorectal Cancer Screening 08/27/2027 Dental X-Ray: Full Mouth 02/16/2028 02/14/2025, 04/10 Lipid Panel 04/12/2029 04/12/2024, 02/08, 07/10/2020 DTaP/Tdap/Td Vaccines (3 - Td or Tdap) 09/21/2034 09/21/2024, 04/10/2014, 09/10/2007 Meningococcal Vaccine Aged Out 08/22/2015 No ezequiel teri eligible based on patient's age to complete this topic Pneumococcal Vaccine: 50+ Years Completed 12/10/2023, 07/21/2020, 09/07/2014 RSV Patients and Patients Aged 60 years or older Completed 03/21/2025 HIB Vaccines Aged Out No longer eligi [...] on patient's age to complete this topic Meningococcal B Vaccine Aged Out No l onger eligible based on patient's age to complete this topic RSV under 20 months Aged Out No longe r eligible based on patient's age to complete this topic Rotavirus Vaccines Aged Out No longer eligible based on patient's age to complete this topic Procedures Procedure Name Priority Date/Time Associated Diagnosis Comments PROPHYLAXIS - ADULT Routine 02/14/2025 3 :00 PM EDT Dental plaque Localized gingival recession INTRAORAL - COMPLETE SERIES OF RADIOGRAPHIC IMAGES Routine 02/14/2025 3:00 PM EDT PERIODIC ORAL EVALUATION - ESTABLISHED PATIENT Routine 02/14/2025 3:00 PM EDT LIPID PANEL WITH REFLEX TO DIRECT LDL Routine 04/12/2024 8:13 AM EDT Essential hypertension HM COLONOSCOPY Routine 08/27/2022 from Last 3 Months or Most Recently Relevant to Health Maintenance Results * Lipid Panel with Reflex to Direct LDL (04/12/2024 8:13 AM EDT) Triglycerides 83 <150 mg/dL [facility] Comment:Desirable Triglyceri de: less than 150 mg/dLBorderline High Triglyceride 150-199 mg/dLHigh Triglyceride: 200-499 mg/dLVery High Triglyceride: greater than or equal to 5OO mg/dL Cholesterol 149 <200 mg/dL [facility] Comment:Desirable Cholestero l: less than 200 mg/dLBorderline High Cholesterol: 200-239 mg/dLHigh Cholesterol: greater than 239 mg/dL LDL Cholesterol Calculated 88 <100 mg/dL [facility] Comment:Desirable LDL: less than 100 mg/dLNear Optimal/Above Optimal LDL: 110- 129 mg/dLBorderline High LDL: 130-159 mg/dLHigh LDL: 160-189 mg/dLVery High LDL: greater than or equal to 190 mg/dL HDL Cholesterol 45 >40 mg/dL [facility] Comment:Desirable HDL: great er than 40 mg/dL Note: This HDL assay may give artificially low results in patients with liver disease. Blood 04/12/2024 8:13 AM EDT 04/12/2024 11:51 AM EDT Cristina Swain MD LAB BLOOD ORDERABLES Fin al Result [facility] [address] [place] [address] [phone] * (ABNORMAL) Colonoscopy (08/27/2022) Colonoscopy Normal(A) Normal 08/27/2022 Narrative Kassidy Arroyo RN - 08/27/2022 3:19 PM EDT 5 year F/U see Patho report in [facility] for more detail re. f/u us Historical Provider HEALTH MAINTENANCE Final Result from Last 3 Months or Most Recently Relevant to Health Maintenance Insurance [address] [place] [id number] [employer] [facility] (O D-SNP) D[facility]AL - [facility] Care Teams Plant Superintendent Relationship Specialty Start Date End Date Cristina Swain MD [address] [place] [phone] PCP - General Family Medicine 07/14/18
--- OUTSIDE RECORDS SUMMARY | 2025-07-24 09:07 | XMS_ITS | Encounter Summary ---
Author Organization [employer] Address [address] [facility] 7t [place] [address] Care Team Providers Care First Aid Instructor Name Role Phone Cristina Swain MD Primary Care Provider + Encounter Details Date Type Department Care Team (Late st Contact Info) Description 12/25/2022 Orders Only [facility] MED & PEDS [address] [place] [address] Lila Waldron LPN Social History Tobacco Use [...] Description 08/01/2025 10:30 AM EDT Office Visit [facility] MEDICINE [address] [place] [address] Cristina Swain MD [address] [place] [address] 08/25/2025 10:15 AM EDT Office Visit [facility] ADULT DENTAL [address] [place] [address] Kayce Burgos [address] [place] [address] documented as of this encounter Visit Diagnoses Not on filedocumented in this encounter Care Teams First Aid Instructor Relationship Specialty Start Date End Date Cristina Swain MD [address] [place] [address] PCP - General Family Medicine 07/14/18 documented as of this encounter
--- OUTSIDE RECORDS SUMMARY | 2025-07-24 09:07 | XMS_ITS | Encounter Summary ---
Author Organization [employer] Address [address] [facility] 7t [place] [address] Care Team Providers Care Bull Driver Name Role Phone Cristina Swain MD Primary Care Provider + Reason for Visit * Reason Comments Med Refill Encounter Details Date Type Department Care Team ([facility] st Contact Info) Description 12/27/2024 Refill [facility] [address] [place], [place] [phone] Cristina Swain MD [address] [place], [place] [phone] Slow transit constipation Social History Tobacco Use [...] Description 08/01/2025 10:30 AM EDT Office Visit [facility] [address] [place] [address] Cristina Swain MD [address] [place] [address] 08/25/2025 10:15 AM EDT Office Visit [facility] ADULT DENTAL [address] [place] [address] AubreyConnorKayce [address] [place] [address] documented as of this encounter Visit Diagnoses Diagnosis Slow transit constipation documented in this encounter Additional Health Concerns Assessment Noted Time PHQ-9 Depression Total Score: 0 08/20/20 23 11:46 AM EDT documented as of this encounter Care Teams Bull Driver Relationship Specialty Start Date End Date Cristina Swain MD [address] [place] [phone] PCP - General Family Medicine 07/14/18 documented as of this encounter
--- OUTSIDE RECORDS SUMMARY | 2025-07-24 09:07 | XMS_ITS | Encounter Summary ---
Author Organization [employer] Address [address] [facility] 7t [place] [address] Care Team Providers Care Horticulture Professor Name Role Phone Cristina Swain MD Primary Care Provider + Reason for Visit * Reason Onset Date Comments rs appt 11/07/2024 Encounter Details Date Type Department Care Team ([facility] st Contact Info) Description 11/07/2024 Telephone [facility] ADULT D[facility]AL [address] [place], [place] [phone] Kobe Joel, DMD [address] [place] [address] rs appt Social History Tobacco Use Types [...] Description 08/01/2025 10:30 AM EDT Office Visit [facility] MEDICINE [address] [place] [address] Cristina Swain MD [address] [place] [address] 08/25/2025 10:15 AM EDT Office Visit [facility] ADULT DENTAL [address] [place] [address] Kayce Burgos [address] [place] [address] documented as of this encounter Visit Diagnoses Not on filedocumented in this encounter Additional Health Concerns Assessment Noted Time PHQ-9 Depression Total Score: 0 10/12/20 23 11:46 AM EDT documented as of this encounter Care Teams Horticulture Professor Relationship Specialty Start Date End Date Cristina Swain MD [address] [place] [phone] PCP - General Family Medicine 07/14/18 documented as of this encounter
--- OUTSIDE RECORDS SUMMARY | 2025-07-24 09:07 | XMS_ITS | Encounter Summary ---
Author Organization [employer] Address [address] [facility] 7t [place] [address] Care Team Providers Care Kerfer Machine Operator Name Role Phone Cristina Swain MD Primary Care Provider + Reason for Visit * Reason Comments Med Refill Encounter Details Date Type Department Care Team ([facility] st Contact Info) Description 11/03/2024 Refill [facility] [address] [place], [place] [phone] Cristina Swain MD [address] [place], [place] [phone] Slow transit constipation Social History Tobacco Use [...] Description 08/01/2025 10:30 AM EDT Office Visit [facility] [address] [place] [address] Cristina Swain MD [address] [place] [address] 08/25/2025 10:15 AM EDT Office Visit [facility] ADULT DENTAL [address] [place] [address] AubreyConnorKayce [address] [place] [address] documented as of this encounter Visit Diagnoses Diagnosis Slow transit constipation documented in this encounter Additional Health Concerns Assessment Noted Time PHQ-9 Depression Total Score: 0 08/20/20 23 11:46 AM EDT documented as of this encounter Care Teams Kerfer Machine Operator Relationship Specialty Start Date End Date Cristina Swain MD [address] [place] [phone] PCP - General Family Medicine 07/14/18 documented as of this encounter
--- OUTSIDE RECORDS SUMMARY | 2025-07-24 09:07 | XMS_ITS | Encounter Summary ---
Author Organization [facility] Address [address] [facility] 7t [place] [address] Care Team Providers Care Mortgage Closer Name Role Phone Cristina Swain MD Primary Care Provider + Encounter Details Date Type Department Care Team (Latest Contact Info) Description 06/19/2022 Abstract [facility] CONVERSIONS Dental, Provider, DDS Social [...] Description 08/01/2025 10:30 AM EDT Office Visit [facility] MEDICINE [address] [place] [address] Cristina Swain MD [address] [place] [address] 08/25/2025 10:15 AM EDT Office Visit [facility] ADULT DENTAL [address] [place] [address] Kayce Burgos [address] [place] [address] documented as of this encounter Visit Diagnoses Not on filedocumented in this encounter Care Teams Mortgage Closer Relationship Specialty Start Date End Date Cristina Swain MD [address] [place] [address] PCP - General Family Medicine 07/14/18 documented as of this encounter
--- OUTSIDE RECORDS SUMMARY | 2025-07-24 09:07 | XMS_ITS | Encounter Summary ---
Author Organization [employer] Address [address] [facility] 7t [place] [address] Care Team Providers Care Unix Systems Administrator Name Role Phone Cristina Swain MD Primary Care Provider + Encounter Details Date Type Department Care Team (Late st Contact Info) Description 12/02/2022 Orders Only [facility] MEDICINE [address] [place] [address] Eve Hope LPN Social History Tobacco Use [...] Description 08/01/2025 10:30 AM EDT Office Visit [facility] [address] [place] [address] Cristina Swain MD [address] [place] [address] 08/25/2025 10:15 AM EDT Office Visit [facility] ADULT DENTAL [address] [place] [address] Kayce Burgos [address] [place] [address] documented as of this encounter Visit Diagnoses Not on filedocumented in this encounter Care Teams Unix Systems Administrator Relationship Specialty Start Date End Date Cristina Swain MD [address] [place] [address] PCP - General Family Medicine 07/14/18 documented as of this encounter
--- OUTSIDE RECORDS SUMMARY | 2025-07-24 09:07 | XMS_ITS | Encounter Summary ---
Author Organization [employer] [facility] Address [address] [facility] 7t [place] [address] Care Team Providers Care Lean Consultant Name Role Phone Cristina Swain MD Primary Care Provider + Encounter Details Date Type Department Care Team (Latest Contact Info) Description 04/23/2021 Abstract [facility] CONVERSIONS Dental, Provider, DDS Social History [...] Description 08/01/2025 10:30 AM EDT Office Visit [facility] MEDICINE [address] [place] [address] Cristina Swain MD [address] [place] [address] 08/25/2025 10:15 AM EDT Office Visit [facility] ADULT DENTAL [address] [place] [address] Kayce Burgos [address] [place] [address] documented as of this encounter Visit Diagnoses Not on filedocumented in this encounter Care Teams Lean Consultant Relationship Specialty Start Date End Date Cristina Swain MD [address] [place] [address] PCP - General Family Medicine 07/14/18 documented as of this encounter
--- OUTSIDE RECORDS SUMMARY | 2025-07-24 09:07 | XMS_ITS | Encounter Summary ---
Author Organization [employer] [facility] Address [address] [facility] 7t [place] [address] Care Team Providers Care Rail Splitter Name Role Phone Cristina Swain MD Primary Care Provider + Encounter Details Date Type Department Care Team (Latest Contact Info) Description 09/05/2019 Abstract [facility] CONVERSIONS Dental, Provider, DDS Social History Tobacco [...] 10:30 AM EDT Office Visit [facility] MEDICINE [address] [place] [address] Cristina Swain MD [address] [place] [address] 08/25/2025 10:15 AM EDT Office Visit [facility] ADULT DENTAL [address] [place] [address] Kayce Burgos [address] [place] [address] documented as of this encounter Visit Diagnoses Not on filedocumented in this encounter Care Teams Rail Splitter Relationship Specialty Start Date End Date Cristina Swain MD [address] [place] [address] PCP - General Family Medicine 07/14/18 documented as of this encounter
--- OUTSIDE RECORDS SUMMARY | 2025-07-24 09:07 | XMS_ITS | Encounter Summary ---
Author Organization [employer] Address [address] [facility] 7t [place] [address] Care Team Providers Care Film Recordist Name Role Phone Cristina Swain MD Primary Care Provider + Reason for Visit * Reason Comments Med Refill Encounter Details Date Type Department Care Team ([facility] st Contact Info) Description 12/02/2024 Refill [facility] MEDICINE [address] [place], [place] [phone] Cristina Swain MD [address] [place], [place] [phone] Slow transit constipation Social History Tobacco Use [...] Description 08/01/2025 10:30 AM EDT Office Visit [facility] MEDICINE [address] [place] [address] Cristina Swain MD [address] [place] [address] 08/25/2025 10:15 AM EDT Office Visit [facility] ADULT DENTAL [address] [place] [address] AubreyConnorKayce [address] [place] [address] documented as of this encounter Visit Diagnoses Diagnosis Slow transit constipation documented in this encounter Additional Health Concerns Assessment Noted Time PHQ-9 Depression Total Score: 0 08/20/20 23 11:46 AM EDT documented as of this encounter Care Teams Film Recordist Relationship Specialty Start Date End Date Cristina Swain MD [address] [place] [address] PCP - General Family Medicine 07/14/18 documented as of this encounter
--- OUTSIDE RECORDS SUMMARY | 2025-07-24 09:08 | XMS_ITS | Encounter Summary ---
Author Organization [employer] Address [address] [facility] 7t [place] [address] Care Team Providers Care Auto Inspector Name Role Phone Cristina Swain MD Primary Care Provider + Encounter Details Date Type Department Care Team (Late st Contact Info) Description 05/04/2023 Abstract [facility] ADULT DENTAL [address] [place] [address] Jese Hankins DDS [address] [place] [address] Social History Tobacco Use Types Packs/Day Years [...] Description 08/01/2025 10:30 AM EDT Office Visit [facility] MEDICINE [address] [place] [address] Cristina Swain MD [address] [place] [address] 08/25/2025 10:15 AM EDT Office Visit [facility] ADULT DENTAL [address] [place], [place] [phone] Kayce Burgos [address] [place], [place] [phone] documented as of this encounter Visit Diagnoses Not on filedocumented in this encounter Care Teams Auto Inspector Relationship Specialty Start Date End Date Cristina Swain MD [address] [place], [place] [phone] PCP - General Family Medicine 07/14/18 documented as of this encounter
--- OUTSIDE RECORDS SUMMARY | 2025-07-24 09:08 | XMS_ITS | Encounter Summary ---
Author Organization [employer] Address [address] [facility] 7t [place] [address] Care Team Providers Care Adjunct History Instructor Name Role Phone Cristina Swain MD Primary Care Provider + Reason for Visit * Reason Comments Med Refill Encounter Details Date Type Department Care Team ([facility] st Contact Info) Description 04/26/2025 Refill [facility] MEDICINE [address] [place], [place] [phone] Cristina Swain MD [address] [place], [place] [phone] Slow transit constipation Social History Tobacco Use [...] Description 08/01/2025 10:30 AM EDT Office Visit [facility] MEDICINE [address] [place] [address] Cristina Swain MD [address] [place] [address] 08/25/2025 10:15 AM EDT Office Visit [facility] ADULT DENTAL [address] [place] [address] Aubrey, Kayce [address] [place] [address] documented as of this encounter Visit Diagnoses Diagnosis Slow transit constipation documented in this encounter Additional Health Concerns Assessment Noted Time PHQ-9 Depression Total Score: 0 08/20/20 23 11:46 AM EDT documented as of this encounter Care Teams Adjunct History Instructor Relationship Specialty Start Date End Date Cristina Swain MD [address] [place] [address] PCP - General Family Medicine 07/14/18 documented as of this encounter
[2025-07-24 12:02] LABS: Alanine Aminotransferase 18 U/L (0-40); Albumin Level 4.8 g/dL (3.5-5.0); Alkaline Phosphatase 103 U/L (39-117); Anion Gap 13 (12-20); Aspartate Amino Transferase 24 U/L (5-37); Blood Urea Nitrogen 11 mg/dL (9-16); Calcium 9.0 mg/dL (8.4-10.2); Carbon Dioxide 26 mmol/L (22-29); Chloride 107 mmol/L (96-108); Cholesterol 178 mg/dL (<200); Estimated Glomerular Filt Rate > 60; HDL Cholesterol 54 mg/dL (>40); Potassium 3.8 mmol/L (3.3-5.1); Sodium 142 mmol/L (135-145); Total Protein 7.6 g/dL (6.5-8.0); Triglycerides 115 mg/dL (<150)
[2025-07-24 12:21] LABS: Reflex LDLD? No
== END 2025-07-24 08:16 | disposition home or self-care (01) ==
LOC: HO.HHCL 08:15
PROVIDERS: PCP Internal Medicine; Visit Provider Internal Medicine
DX: I10 Essential (primary) hypertension (principal)
CPT/HCPCS: 36415; 80053; 80061; 82306